=== PATIENT | male | born 1955 | race Caucasian/White ===

== ENCOUNTER 2017-02-19 08:26 | Day surgery (SDC) | payer MEDICARE, OTHER ==
[2017-02-19] MEDS ORDERED: Lactated Ringers 1,000 ML IV SCH (08:45)
[2017-02-19] MEDS ORDERED: fentaNYL 100 MCG/2 ML SDV ONE (09:54)
[2017-02-19] MEDS ORDERED: Propofol 200 MG/20 ML SDV ONE ×2 (09:54→10:32)
[2017-02-19] MEDS ORDERED: Midazolam 1 MG/ML 2 ML SDV ONE (09:54)
[2017-02-19 12:01] VITALS: BP 125/70
[2017-02-19] MEDS ORDERED: Iopamidol 612 MG/ML 150 ML Bottle IV PRN (12:03)
[2017-02-19] MEDS ORDERED: Sodium Chloride 0.9% 10 ML Syringe FLUSH PRN (12:04)
[2017-02-19] MEDS ORDERED: Sodium Chloride 0.9% 100 ML IV SCH (12:15)
--- NOTE | 2017-02-19 13:01 | CT ---
Chest Abdomen Pelvis w Cont Total DLP 518 mGycm. INDICATION: known rectal tumor COMPARISON: None. FINDINGS: Enhancing asymmetric wall thickening of the rectum over a superior to inferior dimension o f 7.2 cm consistent with clinical indication of known rectal tumor. Enlarged lymph node in the perir ectal fat on series 3 image 181 measuring 10 mm short axis. There are additional tiny lymph nodes in the perirectal fat that are not enlarged by CT size criteria. No adenopathy in the abdomen. Tiny hy podensities in left hepatic lobe too small to characterize but statistically represent cysts. Cholec ystectomy. Small bilateral renal cysts. Tiny esophageal hiatal hernia. Tiny fat-containing periumbil ical hernia. Normal appendix. Lungs are clear. No adenopathy in the chest. No worrisome osseous lesi ons. Exam otherwise unremarkable. IMPRESSION: 1. Enhancing asymmetric wall thickening of the rectum consistent with clinical indication of known r ectal tumor. Single enlarged lymph node in the perirectal fat measuring 10 mm short axis is suspicio us for metastatic disease or reactive lymph node.
--- NOTE | 2017-02-19 13:49 | OR ---
DATE OF PROCEDURE: 02/19/2017 PREOPERATIVE DIAGNOSIS: Colon cancer screening. POSTOPERATIVE DIAGNOSIS: Large rectal mass consistent with rectal adenocarcinoma and multiple colon polyps. PROCEDURE PERFORMED: Colonoscopy to the cecum with biopsy resection of three polyps in the cecum, biopsy of sessile right colon polyp, snare cautery polypectomy of transverse colon polyp, and tattoo of same, biopsy resection of small polyp 10 cm distal to the tattooed polyp, biopsy resection of small colon polyp 20 cm distal to the tattooed polyp, biopsy of rectal mass. ANESTHESIA: IV anesthesia with monitored anesthesia care. INDICATION: This 61-year-old white male is referred for a colonoscopy for colon cancer screening. He has never had a colonoscopic exam. I counseled him for the procedure including risks and alternatives, and he gave his informed consent to proceed. DESCRIPTION OF PROCEDURE: The patient was placed in the left lateral decubitus position. IV anesthesia was administered by the Anesthesia Service. Time-out was held. A rectal exam was performed with a very large mass palpable here. The flexible video Olympus colonoscope was introduced through his anus, up his rectum, and out his colon all the way to the cecum. En route, in the transverse colon, we saw a prominent polyp. A snare was passed about its base, it was sessile. We attempted to remove as much of this we could. Residual polyp was removed with the biopsy forceps. We did tattoo this area with Spring ink. The scope was then passed on to the cecum. In the cecum, we saw three small polyps, which were removed with the biopsy forceps and sent to the laboratory together as one specimen. The scope was brought back into the right colon. Here, we saw a flat sessile polyp. This was biopsied. This was not removed. The scope was then withdrawn further. We visualized the area that was tattooed. Hemostasis was noted. About 10 cm distal to this, we saw a small polyp, which was removed with the biopsy forceps. About 10 cm further back we encounter another small polyp, which was removed with the biopsy forceps. The scope was then brought back with no ther lesions noted until it reached the rectum where the large rectal mass was biopsied. We retroflexed the scope to visualize this further. The scope was then straightened and removed. He tolerated the procedure well. We will obtain a CBC, CMP, CEA, and will do a CT scan of his chest, abdomen and pelvis. Dell Brattlof, MD /[id number] MTDD
== END 2017-02-19 09:35 | disposition home or self-care (01) ==
LOC: JP.SDS 08:26
PROVIDERS: ATTEND Surgery
DX: Z12.11 Encounter for screening for malignant neoplasm of colon (principal); D12.0 Benign neoplasm of cecum; D12.2 Benign neoplasm of ascending colon; D12.3 Benign neoplasm of transverse colon; D12.8 Benign neoplasm of rectum; C20 Malignant neoplasm of rectum
CPT/HCPCS: 36415; 45380; 45385; 71260; 74177; 80053; 82378; 85027; 88305; J2250; J2704; J3010; J7030; J7050; J7120

== ENCOUNTER 2020-11-16 17:04 | Emergency (ER) | payer MEDICARE ==
--- NOTE | 2020-11-16 17:19 | EDM.PDOC ---
<January Larios - Last Filed: 11/16/20 20:59> ED HPI GENERAL MEDICAL PROBLEM - General Chief Complaint: General Stated Complaint: [facility] Time Seen by Provider: 11/16/20 17:16 - Related Data Allergies Allergy/AdvReac Type Severity Reaction Status Date / Time No Known Allergies Allergy Verified 11/16/20 17:14 Home Meds: Home Meds Acetaminophen 500 mg PO QID PRN 10/11/18 [History] Morphine [MS Contin] 15 mg PO BID 10/11/18 [History] oxyCODONE [Oxycodone HCl] 20 mg PO Q3H PRN 10/11/18 [History] Course - Re-Assessments/Exams Free Text/Narrative Re-Assessment/Exam: 11/16/20 20:20 pt had a cat scvan of the abdoman pelvis which showed a 9.1 fluid collection in the pelvic area looking like a chronic abcess . This also could be a necrotic pelvic mass. He was seen at [place] last thur. Dr Reyes looked at the situation and this was discussed with Dr Campbell and he felt the pt would be better served if he went back to [place]. His lactic acid is not elevated. His crp is high. His wbc is not elevated. 11/16/20 20:57 [facility] was consulted and accepted the pt. [facility] was not comfortable accepting the pt. Dr Campbell was not comfortable draining this area. Departure - Departure Time of Disposition: 20:59 Disposition: DC/Tfer to Acute Hospital 02 Condition: Fair Clinical Impression: Pelvic abscess, Metastatic cancer, UTI (urinary tract infection), Dehydration - Discharge Information Referrals: Timoteo Myers NP [Primary Care Provider] - Forms: ED Department Discharge Care Plan Goals: transfer to [facility] <Elieser Gil - Last Filed: 11/17/20 07:05> ED HPI GENERAL MEDICAL PROBLEM - General Source of Information: Reports: Patient, Family History Limitations: Reports: No Limitations - History of Present Illness INITIAL COMMENTS - FREE TEXT/NARRATIVE: 65-year-old male with metastatic cancer, on chemotherapy who has had generalized malaise for the past 2 days, fever, and now persistent nausea and vomiting and unable to take his medications. He spiked a temperature to 103 today. He did call his primary provider and was started on some Bactrim antibiotic but his first dose he threw up, he also cannot take his pain medications. He denies any shortness of breath. His last chemo was 1 week ago, his next round is on November 26. His sister who accompanies him says that this round "kicked his butt bad". Onset: Gradual Duration: Day(s): (Worsening over the past 48 hours) Location: Reports: Abdomen (Pain is in his lower abdomen, also in the buttock crease where there is an open ulceration) Associated Symptoms: Reports: Fever/Chills, Loss of Appetite, Malaise, Nausea/Vomiting, Weakness. Denies: Confusion, Chest Pain Past Medical History HEENT History: Reports: Hard of Hearing, Impaired Vision Cardiovascular History: Reports: Other (See Below) Other Cardiovascular History: BLOOD CLOT X2 IN LEFT LUNG Gastrointestinal History: Reports: Hemorrhoids Neurological History: Reports: Brain Injury, Head Trauma Psychiatric History: Reports: Other (See Below) Other Psychiatric History: TBI Hematologic History: Reports: Blood Transfusion(s) Oncologic (Cancer) History: Reports: Bladder, Colon, Prostate - Infectious Disease History Infectious Disease History: Reports: Chicken Pox, Measles, Mumps - Past Surgical History GI Surgical History: Reports: Colostomy, Small Bowel, Other (See Below) Male Surgical History: Reports: Cystectomy, Prostatectomy, Other (See Below) Other Male Surgeries/Procedures: urostomy Social & Family History - Caffeine Use Caffeine Use: Reports: Coffee ED ROS GENERAL - Review of Systems Review Of Systems: See Below Constitutional: Reports: Fever, Chills Respiratory: Denies: Shortness of Breath, Cough Cardiovascular: Denies: Chest Pain Endocrine: Reports: Fatigue GI/Abdominal: Reports: Abdominal Pain (Especially lower abdomen), Other (Has both a colostomy and urostomy, both functioning) Musculoskeletal: Reports: Back Pain (Low back pain, hip pain from metastatic disease) Skin: Reports: Other (Ulceration in the buttock crease which is painful) Neurological: Reports: Weakness. Denies: Confusion, Dizziness, Headache Psychiatric: Reports: No Symptoms ED EXAM, GENERAL - Physical Exam Exam: See Below Exam Limited By: No Limitations General Appearance: Alert, Mild Distress (Looks fairly uncomfortable from pain, some chills) Eye Exam: Bilateral Eye: Normal Inspection Head: Atraumatic Neck: Supple, Non-Tender Respiratory/Chest: Lungs Clear Cardiovascular: Regular Rate, Rhythm. No: Tachycardia GI/Abdominal: Normal Bowel Sounds, Soft, Tender (Marked tenderness to palpation across the lower abdomen, colostomy and urostomy are in place and appear to be functioning) Extremities: Normal Inspection Neurological: Alert, Oriented Skin Exam: Other (Fairly deep ulceration in the buttock crease which is tender to palpation, no purulent drainage) Course - Vital Signs Last Recorded V/S: Last Vital Signs Temp 99.9 F 11/16/20 17:27 Pulse 73 11/16/20 21:08 Resp 16 11/16/20 17:44 BP 135/62 11/16/20 21:08 Pulse Ox 100 11/16/20 21:08 - Orders/Labs/Meds Orders: Active Orders 24 hr Category Date Time Status Chest 1V Frontal [CR] Stat Exams 11/16/20 17:37 Taken CULTURE BLOOD [BC] Urgent Lab 11/16/20 17:25 Received CULTURE BLOOD [BC] Urgent Lab 11/16/20 17:35 Received CULTURE URINE [RM] Stat Lab 11/16/20 18:09 Results Blood Culture x2 Reflex Set [OM.PC] Urgent Oth 11/16/20 17:15 Ordered Labs: Laboratory Tests 11/16/20 11/16/20 11/16/20 Range/Units 17:19 17:19 17:25 WBC 4.2 L (4.5-11.0) K/uL RBC 3.85 L (4.30-5.90) M/uL Hgb 12.3 (12.0-15.0) g/dL Hct 35.1 L (40.0-54.0) % MCV 91 (80-98) fL MCH 32 H (27-31) pg MCHC 35 (32-36) % Plt Count 215 (150-400) K/uL Neut % (Auto) 80 H (36-66) % Lymph % (Auto) 11 L (24-44) % Blaine % (Auto) 8 H (2-6) % Eos % (Auto) 0 L (2-4) % Baso % (Auto) 0 (0-1) % Sodium (140-148) mmol/L Potassium (3.6-5.2) mmol/L Chloride (100-108) mmol/L Carbon Dioxide (21-32) mmol/L Anion Gap (5.0-14.0) mmol/L BUN (7-18) mg/dL Creatinine (0.8-1.3) mg/dL Est Cr Clr Drug Dosing mL/min Estimated GFR (MDRD) (>60) Glucose (74-106) mg/dL Lactic Acid (0.4-2.0) mmol/L Calcium (8.5-10.1) mg/dL Total Bilirubin (0.2-1.0) mg/dL AST (15-37) U/L ALT (12-78) U/L Alkaline Phosphatase (46-116) U/L C-Reactive Protein 29.80 H (0.0-0.3) mg/dL Total Protein (6.4-8.2) g/dL Albumin (3.4-5.0) g/dL Globulin (2.3-3.5) g/dL Albumin/Globulin Ratio (1.2-2.2) Procalcitonin 1.88 ng/mL Urine Color (YELLOW) Urine Appearance (CLEAR) Urine pH (5.0-8.0) Ur Specific [place] (1.008-1.030) Urine Protein (NEGATIVE) mg/dL Urine Glucose (UA) (NEGATIVE) mg/dL Urine Ketones (NEGATIVE) mg/dL Urine Occult Blood (NEGATIVE) Urine Nitrite (NEGATIVE) Urine Bilirubin (NEGATIVE) Urine Urobilinogen (0.2-1.0) EU/dL Ur Leukocyte Esterase (NEGATIVE) Urine RBC (0-5) Urine WBC (0-5) Ur Epithelial Cells Amorphous Sediment Urine Bacteria Urine Mucus SARS CoV-2 RNA Rapid MARCELINA 11/16/20 11/16/20 11/16/20 Range/Units 17:25 17:25 17:58 WBC (4.5-11.0) K/uL RBC (4.30-5.90) M/uL Hgb (12.0-15.0) g/dL Hct (40.0-54.0) % MCV (80-98) fL MCH (27-31) pg MCHC (32-36) % Plt Count (150-400) K/uL Neut % (Auto) (36-66) % Lymph % (Auto) (24-44) % Blaine % (Auto) (2-6) % Eos % (Auto) (2-4) % Baso % (Auto) (0-1) % Sodium 127 L (140-148) mmol/L Potassium 4.2 (3.6-5.2) mmol/L Chloride 92 L (100-108) mmol/L Carbon Dioxide 24 (21-32) mmol/L Anion Gap 15.2 H (5.0-14.0) mmol/L BUN 17 D (7-18) mg/dL Creatinine 1.2 (0.8-1.3) mg/dL Est Cr Clr Drug Dosing 59.16 mL/min Estimated GFR (MDRD) > 60 (>60) Glucose 152 H (74-106) mg/dL Lactic Acid 1.6 (0.4-2.0) mmol/L Calcium 9.0 (8.5-10.1) mg/dL Total Bilirubin 2.0 H (0.2-1.0) mg/dL AST 14 L (15-37) U/L ALT 25 (12-78) U/L Alkaline Phosphatase 114 (46-116) U/L C-Reactive Protein (0.0-0.3) mg/dL Total Protein 8.0 (6.4-8.2) g/dL Albumin 2.8 L (3.4-5.0) g/dL Globulin 5.2 H (2.3-3.5) g/dL Albumin/Globulin Ratio 0.5 L (1.2-2.2) Procalcitonin ng/mL Urine Color Yellow (YELLOW) Urine Appearance Turbid A (CLEAR) Urine pH >= 9.0 H (5.0-8.0) Ur Specific [place] 1.020 (1.008-1.030) Urine Protein >=300 H (NEGATIVE) mg/dL Urine Glucose (UA) Negative (NEGATIVE) mg/dL Urine Ketones 40 H (NEGATIVE) mg/dL Urine Occult Blood Moderate H (NEGATIVE) Urine Nitrite Positive H (NEGATIVE) Urine Bilirubin Negative (NEGATIVE) Urine Urobilinogen 0.2 (0.2-1.0) EU/dL Ur Leukocyte Esterase Small H (NEGATIVE) Urine RBC 10-20 H (0-5) Urine WBC 30-40 H (0-5) Ur Epithelial Cells Not seen Amorphous Sediment Many Urine Bacteria Moderate Urine Mucus Not seen SARS CoV-2 RNA Rapid MARCELINA 11/16/20 Range/Units 20:59 WBC (4.5-11.0) K/uL RBC (4.30-5.90) M/uL Hgb (12.0-15.0) g/dL Hct (40.0-54.0) % MCV (80-98) fL MCH (27-31) pg MCHC (32-36) % Plt Count (150-400) K/uL Neut % (Auto) (36-66) % Lymph % (Auto) (24-44) % [place]aine % (Auto) (2-6) % Eos % (Auto) (2-4) % Baso % (Auto) (0-1) % Sodium (140-148) mmol/L Potassium (3.6-5.2) mmol/L Chloride (100-108) mmol/L Carbon Dioxide (21-32) mmol/L Anion Gap (5.0-14.0) mmol/L BUN (7-18) mg/dL Creatinine (0.8-1.3) mg/dL Est Cr Clr Drug Dosing mL/min Estimated GFR (MDRD) (>60) Glucose (74-106) mg/dL Lactic Acid (0.4-2.0) mmol/L Calcium (8.5-10.1) mg/dL Total Bilirubin (0.2-1.0) mg/dL AST (15-37) U/L ALT (12-78) U/L Alkaline Phosphatase (46-116) U/L C-Reactive Protein (0.0-0.3) mg/dL Total Protein (6.4-8.2) g/dL Albumin (3.4-5.0) g/dL Globulin (2.3-3.5) g/dL Albumin/Globulin Ratio (1.2-2.2) Procalcitonin ng/mL Urine Color (YELLOW) Urine Appearance (CLEAR) Urine pH (5.0-8.0) Ur Specific [place] (1.008-1.030) Urine Protein (NEGATIVE) mg/dL Urine Glucose (UA) (NEGATIVE) mg/dL Urine Ketones (NEGATIVE) mg/dL Urine Occult Blood (NEGATIVE) Urine Nitrite (NEGATIVE) Urine Bilirubin (NEGATIVE) Urine Urobilinogen (0.2-1.0) EU/dL Ur Leukocyte Esterase (NEGATIVE) Urine RBC (0-5) Urine WBC (0-5) Ur Epithelial Cells Amorphous Sediment Urine Bacteria Urine Mucus SARS CoV-2 RNA Rapid MARCELINA Negative Meds: Medications Discontinued Medications Generic Name Dose Route Start Last Admin Trade Name Lesli PRN Reason Stop Dose Admin Hydromorphone HCl 1 mg 11/16/20 17:31 11/16/20 17:39 Dilaudid IVPUSH 11/16/20 17:32 1 mg ONETIME ONE Administration Hydromorphone HCl 1 mg 11/16/20 18:27 11/16/20 18:32 Dilaudid IVPUSH 11/16/20 18:28 1 mg ONETIME ONE Administration Sodium Chloride 1,000 mls @ 500 mls/hr 11/16/20 17:45 11/16/20 17:48 Normal Saline IV 500 mls/hr ASDIRECTED LYNDSAY Administration Meropenem 1 gm/ Sodium 100 mls @ 200 mls/hr 11/16/20 17:39 11/16/20 17:48 Chloride IV 11/16/20 18:08 200 mls/hr ONETIME ONE Administration Sodium Chloride Confirm 11/16/20 17:45 11/16/20 18:28 Normal Saline Administered 11/16/20 17:46 Not Given Dose 100 mls @ as directed .ROUTE .STK-MED ONE Sodium Chloride 75 mls @ 3 mls/sec 11/16/20 18:45 11/16/20 18:49 Normal Saline IV 3 mls/sec ASDIRECTED LYNDSAY Administration Sodium Chloride 1,000 mls @ 500 mls/hr 11/16/20 20:30 11/16/20 20:20 Normal Saline IV 500 mls/hr ASDIRECTED LYNDSAY Administration Iopamidol 100 ml 11/16/20 18:45 11/16/20 18:49 Isovue-300 (61%) IV 100 ml . DIRECTED LYNDSAY Administration Morphine Sulfate 4 mg 11/16/20 19:49 11/16/20 19:57 Morphine IVPUSH 11/16/20 19:50 4 mg ONETIME ONE Administration Morphine Sulfate 4 mg 11/16/20 21:15 11/16/20 21:27 Morphine IVPUSH 11/16/20 21:16 4 mg ONETIME ONE Administration Ondansetron HCl 4 mg 11/16/20 17:31 11/16/20 17:37 Zofran IVPUSH 11/16/20 17:32 4 mg ONETIME ONE Administration Ondansetron HCl 4 mg 11/16/20 19:23 11/16/20 19:31 Zofran IVPUSH 11/16/20 19:24 4 mg ONETIME ONE Administration Sodium Chloride 10 ml 11/16/20 18:32 11/16/20 18:49 Saline Flush FLUSH 11/16/20 18:33 10 ml ONETIME ONE Administration - Re-Assessments/Exams Free Text/Narrative Re-Assessment/Exam: 11/16/20 17:42 Normal saline fluids will be started, blood cultures obtained, CBC, CMP, CRP, procalcitonin, UA and 1 view chest x-ray. Blood cultures were also be drawn. After the labs 1 g of meropenem will be started IV. 11/16/20 17:46 After discussing his case with the hospitalist service and reviewing his past records, a CT of his abdomen and pelvis will be ordered with IV contrast if his renal function can tolerate it. Care will be turned over to Dr. Larios pending lab and x-ray. 11/16/20 17:54 Chest x-ray is clear. Sepsis Event Note (ED) - Focused Exam Vital Signs: Vital Signs Pulse BP Pulse Ox 11/16/20 21:08 73 135/62 100 11/16/20 20:17 79 130/69 98 11/16/20 19:19 79 139/57 L 94 L - My Orders Last 24 Hours: My Active Orders 11/16/20 17:15 Blood Culture x2 Reflex Set [OM.PC] Urgent 11/16/20 17:25 CULTURE BLOOD [BC] Urgent 11/16/20 17:35 CULTURE BLOOD [BC] Urgent 11/16/20 17:37 Chest 1V Frontal [CR] Stat - Assessment/Plan Last 24 Hours: My Active Orders 11/16/20 17:15 Blood Culture x2 Reflex Set [OM.PC] Urgent 11/16/20 17:25 CULTURE BLOOD [BC] Urgent 11/16/20 17:35 CULTURE BLOOD [BC] Urgent 11/16/20 17:37 Chest 1V Frontal [CR] Stat
[2020-11-16] MEDS ORDERED: Ondansetron 4 MG/2 ML SDV IVPUSH ONE ×2 (17:31→19:23)
[2020-11-16] MEDS ORDERED: HYDROmorphone 1 MG/ML Syringe IVPUSH ONE ×2 (17:31→18:27)
[2020-11-16] MEDS ORDERED: Meropenem 1 GM in Sodium Chloride 0.9% 100 ML IV ONE (17:39)
[2020-11-16] MEDS ORDERED: Sodium Chloride 0.9% 1,000 ML IV SCH ×2 (17:45→20:30)
[2020-11-16] MEDS ORDERED: Sodium Chloride 0.9% 100 ML ONE (17:45)
[2020-11-16] MEDS ORDERED: Sodium Chloride 0.9% 10 ML Syringe FLUSH ONE (18:32)
[2020-11-16] MEDS ORDERED: Sodium Chloride 0.9% 75 ML IV SCH (18:45)
[2020-11-16] MEDS ORDERED: Iopamidol 612 MG/ML 100 ML Bottle IV SCH (18:45)
[2020-11-16] MEDS ORDERED: Morphine 4 MG/ML Syringe IVPUSH ONE ×2 (19:49→21:15)
--- NOTE | 2020-11-16 19:59 | CRLCT ---
INDICATION: Abdominal abscess TECHNIQUE: Axial images were obtained from the diaphragm to the pubic symphysis. Reformats were obtained in the coronal and sagittal plane. IV Contrast: 100 cc Isovue-300 Oral Contrast: None COMPARISON: Abdomen and pelvis CT 10/11/2018 FINDINGS: Lower chest: Unremarkable. Liver: Normal in contour with 2 hypodensities measuring 5 millimeters or less within the left lobe of the liver which are too small for characterization. Gallbladder and bile ducts: Status post cholecystectomy. Spleen: Unremarkable. Normal in size without mass. Pancreas: Unremarkable. No mass or inflammation. Adrenal glands: Unremarkable. No nodules. Kidneys: Mild nonspecific fat stranding both kidneys with mildly heterogeneous enhancement of both kidneys, best appreciated near the upper pole (2, 36). Exophytic cyst lower pole left kidney. Vasculature: Atherosclerosis without abdominal aortic aneurysm. GI tract: Minimal hiatal hernia. Subcentimeter rin hepatis lymph nodes. Small bowel is decompressed. Right lower quadrant ileostomy. Left lower quadrant urostomy. Pelvis: Status post cystectomy with complex presacral collection measuring up to 9.1 x 6.7 centimeters. There are some associated erosion of the adjacent coccyx. Bones: Degenerative disc disease lumbar spine with some erosive changes of the distal coccyx. IMPRESSION: 1. Status post cystectomy and right lower quadrant ostomy and left lower quadrant urostomy. Mixture of some soft tissue with central low density in the pelvis measuring 9.1 centimeters. Differential diagnosis would include a chronic postoperative collection including chronic abscess and/or necrotic pelvic mass. This is better defined and increased in size compared to the 2018 exam. 2. Heterogeneous enhancement of the kidneys. This is nonspecific but can be seen in pyelonephritis. 3. Other incidental findings as detailed above. Please note that all CT scans at this facility use dose modulation, iterative reconstruction, and/or weight-based dosing when appropriate to reduce radiation dose to as low as reasonably achievable. Dictated by Alexx Hu MD @ Nov 16 2020 7:39PM Signed by Dr. Alexx Hu @ Nov 16 2020 7:57PM
[2020-11-16 21:09] VITALS: BP 135/62; PULSE 73
--- NOTE | 2020-11-17 09:02 | CR ---
CHEST: Portable 11/16/2020 at 5:55 PM CLINICAL HISTORY:Fever, on chemotherapy COMPARISON:CT 2018 FINDINGS: Heart size and pulmonary vascular normal. There are atherosclerotic changes in the aorta. Lung aguilar are clear. Impression: No acute cardiopulmonary process.
== END 2020-11-16 21:49 ==
LOC: JP.ED 17:04
DX: K65.1 Peritoneal abscess (principal); N39.0 Urinary tract infection, site not specified; E86.0 Dehydration; C80.1 Malignant (primary) neoplasm, unspecified; L98.419 Non-pressure chronic ulcer of buttock with unspecified severity; Z20.828 Contact with and (suspected) exposure to other viral communicable diseases
CPT/HCPCS: 36415; 71045; 71045-26; 74177; 80053; 81001; 83605; 84145; 85025; 86140; 87040; 87086; 87088; 87186; 96365; 96375; 96376; 99284; 99285-25; J1170; J2185; J2270; J2405; J7030; J7050; Q9967; U0002

== ENCOUNTER 2021-03-27 09:33 | Emergency (ER) | payer MEDICARE ==
--- NOTE | 2021-03-27 09:44 | EDM.PDOC ---
ED HPI GENERAL MEDICAL PROBLEM - General Chief Complaint: General Stated Complaint: MEDICAL VIA [facility] - Time Seen by Provider: 03/27/21 09:40 Source of Information: Reports: Patient, EMS, Old Records History Limitations: Reports: No Limitations - History of Present Illness INITIAL COMMENTS - FREE TEXT/NARRATIVE: 65 yo male with metastatic colon CA is brought in by EMS this morning for nausea, vomiting, watery drainage from colostomy and generalized weakness. EMS started 500 ml of NS IV on him and administered Zofran 4 mg IV and 100 mcg IV Fentanyl. 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 He lives alone, but a sister has been staying with him and assisting him(may have a male roommate? per EMS). Gets most of his care at the [facility]. No bloody emesis or bloody stool. His open wound near his anus drains pus chronically he says. No fever reported. Has a urostomy also. Sister says that they were told that his current chemo did cause vomiting and diarrhea(they were told this by [place]). Onset: Gradual Duration: Day(s):, Getting Worse Location: Reports: Abdomen, Generalized Quality: Reports: Other (none new) Severity: Severe (weakness) Improves with: Reports: None Worsens with: Reports: Other (time and continued nausea, vomiting, diarrhea) Context: Reports: Other (See HPI) Associated Symptoms: Reports: Nausea/Vomiting, Weakness (generalized). Denies: Fever/Chills Treatments INDUSTRIAL MECHANIC: Reports: Other (see below) (See HPI) Sacral Pain Score (Numeric/FACES): 5 - Related Data Allergies Allergy/AdvReac Type Severity Reaction Status Date / Time No Known Allergies Allergy Verified 03/27/21 10:08 Home Meds: Home Meds oxyCODONE [Oxycodone HCl] 30 mg PO Q4H PRN 10/11/18 [History] Loperamide [Imodium AD] 4 mg PO ASDIRECTED PRN 03/27/21 [History] Morphine Sulfate [Morphine Sulfate ER] 130 mg PO Q8H 03/27/21 [History] Pemigatinib [Pemazyre] 13.5 mg PO DAILY 03/27/21 [History] Past Medical History HEENT History: Reports: Hard of Hearing, Impaired Vision Cardiovascular History: Reports: Other (See Below) Other Cardiovascular History: BLOOD CLOT X2 IN LEFT LUNG Gastrointestinal History: Reports: Hemorrhoids Genitourinary History: Reports: Other (See Below) Musculoskeletal History: Reports: None Neurological History: Reports: Brain Injury, Head Trauma Psychiatric History: Reports: Other (See Below) Other Psychiatric History: TBI Endocrine/Metabolic History: Reports: Obesity/BMI 30+ Hematologic History: Reports: Blood Transfusion(s) Oncologic (Cancer) History: Reports: Bladder, Colon, Prostate, Other (See Below) Other Oncologic History: right hip - Infectious Disease History Infectious Disease History: Reports: Chicken Pox, Measles, Mumps - Past Surgical History GI Surgical History: Reports: Colostomy, Small Bowel, Other (See Below) Male Surgical History: Reports: Cystectomy, Prostatectomy, Other (See Below) Other Male Surgeries/Procedures: urostomy Social & Family History - Caffeine Use Caffeine Use: Reports: Coffee ED ROS GENERAL - Review of Systems Review Of Systems: See Below Constitutional: Reports: Malaise, Weakness HEENT: Reports: Other (dry mouth) Respiratory: Reports: No Symptoms Cardiovascular: Reports: No Symptoms Endocrine: Reports: No Symptoms GI/Abdominal: Reports: Diarrhea, Nausea, Vomiting. Denies: Black Stool, Bloody Stool, Distension, Hematemesis, Hematochezia, Melena : Reports: No Symptoms Musculoskeletal: Reports: No Symptoms Skin: Reports: Wound (coccygeal area, chronic) Neurological: Reports: No Symptoms Psychiatric: Reports: No Symptoms ED EXAM, GENERAL - Physical Exam Exam: See Below Exam Limited By: No Limitations General Appearance: Alert, WD/WN, No Apparent Distress Eye Exam: Bilateral Eye: Normal Inspection Ears: Normal External Exam, Normal Canal, Hearing Grossly Normal Ear Exam: Bilateral Ear: Auricle Normal, Canal Normal Nose: Normal Inspection, No Blood Throat/Mouth: Normal Inspection, Normal Lips, Normal Oropharynx, Normal Voice, No Airway Compromise Head: Atraumatic, Normocephalic Neck: Normal Inspection Respiratory/Chest: No Respiratory Distress, Lungs Clear, Normal Breath Sounds, No Accessory Muscle Use Cardiovascular: Regular Rate, Rhythm, No Edema GI/Abdominal: Normal Bowel Sounds, Soft, Non-Tender, No Distention Back Exam: Normal Inspection. No: CVA Tenderness (R), CVA Tenderness (L) Extremities: Normal Inspection, Normal Range of Motion, Non-Tender, No Pedal Edema Neurological: Alert, Oriented, CN II-XII Intact, Normal Cognition, No Motor/Sensory Deficits Psychiatric: Normal Affect, Normal Mood Skin Exam: Warm, Dry, Normal Color, No Rash, Wound/Incision (coccygeal area. Purulent drainage noted. ) Course - Vital Signs Last Recorded V/S: Last Vital Signs Temp 36.1 C 03/27/21 10:05 Pulse 93 03/27/21 10:44 Resp 12 03/27/21 10:44 BP 122/67 03/27/21 10:44 Pulse Ox 97 03/27/21 10:44 - Orders/Labs/Meds Orders: Active Orders 24 hr Category Date Time Status UA W/MICROSCOPIC [URIN] Stat Lab 03/27/21 09:38 Ordered Sodium Chloride 0.9% [Normal Saline] 1,000 ml Med 03/27/21 10:45 Active IV ASDIRECTED Sodium Chloride 0.9% [Normal Saline] 1,000 ml Med 03/27/21 12:00 Active IV ASDIRECTED Medication Orders Sodium Chloride (Normal Saline) 1,000 mls @ 1,000 mls/hr IV ASDIRECTED LYNDSAY Last Admin: 03/27/21 10:41 Dose: 1,000 mls/hr Documented by: HEATHER Sodium Chloride (Normal Saline) 1,000 mls @ 1,000 mls/hr IV ASDIRECTED YLNDSAY Last Admin: 03/27/21 12:05 Dose: 1,000 mls/hr Documented by: HEATHER Labs: Laboratory Tests 03/27/21 03/27/21 Range/Units 10:05 10:05 WBC 12.0 H (4.5-11.0) K/uL RBC 5.46 (4.30-5.90) M/uL Hgb 15.4 H D (12.0-15.0) g/dL Hct 46.1 (40.0-54.0) % MCV 84 (80-98) fL MCH 28 (27-31) pg MCHC 33 (32-36) % Plt Count 365 (150-400) K/uL Sodium 136 L (140-148) mmol/L Potassium 4.6 (3.6-5.2) mmol/L Chloride 97 L (100-108) mmol/L Carbon Dioxide 24 (21-32) mmol/L Anion Gap 19.6 H (5.0-14.0) mmol/L BUN 15 (7-18) mg/dL Creatinine 1.3 (0.8-1.3) mg/dL Est Cr Clr Drug Dosing 55.54 mL/min Estimated GFR (MDRD) 56 L (>60) Glucose 163 H (74-106) mg/dL Calcium 10.8 H D (8.5-10.1) mg/dL Total Bilirubin 1.5 H (0.2-1.0) mg/dL AST 25 D (15-37) U/L ALT 30 (12-78) U/L Alkaline Phosphatase 151 H (46-116) U/L Total Protein 9.5 H (6.4-8.2) g/dL Albumin 3.8 (3.4-5.0) g/dL Globulin 5.7 H (2.3-3.5) g/dL Albumin/Globulin Ratio 0.7 L (1.2-2.2) Meds: Medications Generic Name Dose Route Start Last Admin Trade Name Freq PRN Reason Stop Dose Admin Sodium Chloride 1,000 mls @ 1,000 mls/hr 03/27/21 10:45 03/27/21 10:41 Normal Saline IV 1,000 mls/hr ASDIRECTED LYNDSAY Administration Sodium Chloride 1,000 mls @ 1,000 mls/hr 03/27/21 12:00 03/27/21 12:05 Normal Saline IV 1,000 mls/hr ASDIRECTED LYNDSAY Administration Discontinued Medications Generic Name Dose Route Start Last Admin Trade Name Freq PRN Reason Stop Dose Admin Hydromorphone HCl 1 mg 03/27/21 11:35 03/27/21 12:06 Hydromorphone 1 Mg/Ml Syringe IVPUSH 03/27/21 11:36 1 mg ONETIME ONE Administration Loperamide HCl 4 mg 03/27/21 12:00 03/27/21 12:05 Loperamide 2 Mg Cap PO 03/27/21 12:01 4 mg ONETIME ONE Administration Ondansetron HCl 4 mg 03/27/21 10:26 03/27/21 10:40 Ondansetron 4 Mg/2 Ml Sdv IVPUSH 03/27/21 10:27 4 mg ONETIME ONE Administration Prochlorperazine Edisylate 5 mg 03/27/21 11:54 03/27/21 12:02 Prochlorperazine 10 Mg/2 Ml Sdv IVPUSH 03/27/21 11:55 5 mg ONETIME ONE Administration - Re-Assessments/Exams Free Text/Narrative Re-Assessment/Exam: 03/27/21 13:04 Is feeling better now after 2.5 liters of IV fluids and IV compazine. Free Text/Narrative Re-Assessment/Exam: 03/27/21 15:10 Able to walk unassisted in the ER after tx. Ready for discharge. Departure - Departure Time of Disposition: 05:20 Disposition: Home, Self-Care 01 Condition: Fair Clinical Impression: Nausea vomiting and diarrhea, Dehydration - Discharge Information *PRESCRIPTION DRUG MONITORING PROGRAM REVIEWED*: Not Applicable *COPY OF PRESCRIPTION DRUG MONITORING REPORT IN PATIENT SEBASTIEN: Not Applicable Instructions: Nausea and Vomiting, Adult, [id number], Diarrhea, Adult, [id number] Referrals: Timoteo Myers [facility] [Primary Care Provider] - Forms: ED Department Discharge Additional Instructions: Use loperamide as needed for control of loose stools. Use Zofran ODT 4 mg every 4 hrs as needed for nausea control. Take in Gatorade or other clear liquids and eat a diet as tolerated to help maintain hydration and keep up your strength. Discuss with your provider whether to continue the current chemo meds. F/U in [place] as discussed. Return as needed. Sepsis Event Note (ED) - Focused Exam Vital Signs: Vital Signs Temp Pulse Resp BP Pulse Ox 03/27/21 10:44 93 12 122/67 97 03/27/21 10:05 36.1 C 89 10 L 144/81 H 100 03/27/21 09:46 36.1 C 89 10 L 144/81 H 100 - My Orders Last 24 Hours: My Active Orders 03/27/21 09:38 UA W/MICROSCOPIC [URIN] Stat 03/27/21 10:45 Sodium Chloride 0.9% [Normal Saline] 1,000 ml IV ASDIRECTED 03/27/21 12:00 Sodium Chloride 0.9% [Normal Saline] 1,000 ml IV ASDIRECTED - Assessment/Plan Last 24 Hours: My Active Orders 03/27/21 09:38 UA W/MICROSCOPIC [URIN] Stat 03/27/21 10:45 Sodium Chloride 0.9% [Normal Saline] 1,000 ml IV ASDIRECTED 03/27/21 12:00 Sodium Chloride 0.9% [Normal Saline] 1,000 ml IV ASDIRECTED
[2021-03-27] MEDS ORDERED: Ondansetron 4 MG/2 ML SDV IVPUSH ONE (10:26)
[2021-03-27 10:44] VITALS: BP 122/67; PULSE 93
[2021-03-27] MEDS ORDERED: Sodium Chloride 0.9% 1,000 ML IV SCH ×2 (10:45→12:00)
[2021-03-27] MEDS ORDERED: HYDROmorphone 1 MG/ML Syringe IVPUSH ONE (11:35)
[2021-03-27] MEDS ORDERED: Loperamide 1 MG/7.5 ML 7.5 ML UD Cup PO ONE (11:36)
[2021-03-27] MEDS ORDERED: Prochlorperazine 10 MG/2 ML SDV IVPUSH ONE (11:54)
[2021-03-27] MEDS ORDERED: Loperamide 2 MG Cap PO ONE (12:00)
== END 2021-03-27 15:28 | disposition home or self-care (01) ==
LOC: JP.ED 09:33
DX: E86.0 Dehydration (principal); R11.2 Nausea with vomiting, unspecified; R19.7 Diarrhea, unspecified; E66.9 Obesity, unspecified; Z68.33 Body mass index [BMI] 33.0-33.9, adult
CPT/HCPCS: 36415; 80053; 85027; 96374; 96375; 99283; 99285-25; A9270-GY; J0780; J1170; J2405; J7030

== ENCOUNTER 2021-06-28 14:49 | Inpatient (IN) | payer MEDICARE ==
--- NOTE | 2021-06-28 16:43 | EDM.PDOC ---
<CasieHolland jassoeal Catherine - Last Filed: 06/28/21 16:38> ED HPI GENERAL MEDICAL PROBLEM - General Chief Complaint: Skin Complaint Stated Complaint: HAS CANCER AND DOES NOT FEEL WELL Time Seen by Provider: 06/28/21 16:25 Source of Information: Reports: Patient, Old Records, RN History Limitations: Reports: No Limitations - History of Present Illness INITIAL COMMENTS - FREE TEXT/NARRATIVE: 65 yo male presents with concerns about dehydration and C.diff. Has a hx of CA and has a colostomy. He called down and talked with [place] where he gets his CA care and was told to come to the ER. He has not seen his primary recently, nor did he share his current concerns with him. He denies abdominal pain, fever, or vomiting. He has a large rectal open wound that he would like looked at also. Onset: Gradual, Unknown/Unsure Duration: Day(s):, Constant Location: Reports: Generalized Quality: Reports: Other (no new pain) Severity: Mild Improves with: Reports: None Worsens with: Reports: Other (unknown) Context: Reports: Other (See HPI) Associated Symptoms: Reports: Nausea/Vomiting (no vomiting, intermittent mild nausea), Other (weight loss, stools looser than normal). Denies: Confusion, Chest Pain, Cough, Fever/Chills, Headaches, Shortness of Breath Treatments ELASTIC YARN TWISTER: Reports: Other (see below) (none) Buttock Pain Score (Numeric/FACES): 6 - Related Data Allergies Allergy/AdvReac Type Severity Reaction Status Date / Time No Known Allergies Allergy Verified 06/28/21 15:36 Home Meds: Home Meds HYDROmorphone HCl [Dilaudid] 24 mg PO Q3H PRN 06/28/21 [History] Levothyroxine Sodium [Synthroid] 75 mcg PO DAILY 06/28/21 [History] Methadone 30 mg PO Q8H 06/28/21 [History] Past Medical History HEENT History: Reports: Hard of Hearing, Impaired Vision Cardiovascular History: Reports: Other (See Below) Other Cardiovascular History: BLOOD CLOT X2 IN RIGHT LUNG Respiratory History: Reports: Other (See Below) Other Respiratory History: PE Gastrointestinal History: Reports: Hemorrhoids Genitourinary History: Reports: Renal Calculus, Other (See Below) Other Genitourinary History: prostate CA Musculoskeletal History: Reports: None Neurological History: Reports: Brain Injury, Head Trauma Psychiatric History: Reports: Other (See Below) Other Psychiatric History: TBI Endocrine/Metabolic History: Reports: Obesity/BMI 30+, Other (See Below) Other Endocrine/Metabolic History: 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 Hematologic History: Reports: Blood Transfusion(s) Oncologic (Cancer) History: Reports: Bladder, Colon, Prostate, Other (See Below) Other Oncologic History: right hip Dermatologic History: Reports: Other (See Below) Other Dermatologic History: wound on coccyx - Infectious Disease History Infectious Disease History: Reports: Chicken Pox, Measles, Mumps - Past Surgical History Head Surgeries/Procedures: Reports: None HEENT Surgical History: Reports: Adenoidectomy, Tonsillectomy Cardiovascular Surgical History: Reports: None GI Surgical History: Reports: Colon, Colostomy, Small Bowel, Other (See Below) Male Surgical History: Reports: Cystectomy, Prostatectomy, Other (See Below) Other Male Surgeries/Procedures: urostomy Endocrine Surgical History: Reports: None Neurological Surgical History: Reports: None Musculoskeletal Surgical History: Reports: Other (See Below) Other Musculoskeletal Surgeries/Procedures:: left foot Dermatological Surgical History: Reports: None Social & Family History - Tobacco Use Tobacco Use Status *Q: Never Tobacco User - Caffeine Use Caffeine Use: Reports: None - Recreational Drug Use Recreational Drug Use: No ED ROS GENERAL - Review of Systems Review Of Systems: See Below Constitutional: Reports: Weight Loss HEENT: Reports: No Symptoms Respiratory: Reports: No Symptoms Cardiovascular: Reports: No Symptoms Endocrine: Reports: No Symptoms GI/Abdominal: Reports: Diarrhea, Nausea. Denies: Vomiting : Reports: No Symptoms Musculoskeletal: Reports: No Symptoms Skin: Reports: No Symptoms Neurological: Reports: No Symptoms Psychiatric: Reports: No Symptoms ED EXAM, SKIN/RASH Exam: See Below Exam Limited By: No Limitations General Appearance: Alert, WD/WN, No Apparent Distress Eye Exam: Bilateral Eye: Normal Inspection Ears: Normal External Exam, Normal Canal, Hearing Grossly Normal, Normal TMs Nose: Normal Inspection, No Blood Throat/Mouth: Normal Inspection, Normal Lips, Normal Oropharynx, Normal Voice, No Airway Compromise Head: Atraumatic, Normocephalic Neck: Normal Inspection Respiratory/Chest: No Respiratory Distress, Lungs Clear, Normal Breath Sounds, No Accessory Muscle Use Cardiovascular: Regular Rate, Rhythm, No Edema GI/Abdominal: Soft, Non-Tender, Abnormal Bowel Sounds (increased), Other (colostomy bag present). No: Distended, Guarding, Rigid, Rebound, Tender Rectal (Males) Exam: Other (His rectal mass does not reveal any redness or increased warmth. ) Back Exam: Normal Inspection Extremities: Normal Inspection, Normal Range of Motion, Non-Tender, No Pedal Edema Neurological: Alert, Oriented, CN II-XII Intact, Normal Cognition, No Motor/Sensory Deficits Psychiatric: Normal Affect, Normal Mood Skin: Warm, Dry, Intact, Normal Color, No Rash Associated features: No: Warmth, Tenderness, Lymphangitis Departure - Departure Disposition: Refer to Observation Clinical Impression: Hyponatremia, Hyperkalemia - Discharge Information Referrals: PCP,None [Primary Care Provider] - Forms: ED Department Discharge Sepsis Event Note (ED) - Evaluation Sepsis Screening Result: No Definite Risk <Dino Andersen - Last Filed: 06/28/21 22:26> Course - Vital Signs Last Recorded V/S: Last Vital Signs Temp 36.2 C 06/28/21 15:35 Pulse 95 06/28/21 15:35 Resp 15 06/28/21 15:35 BP 132/67 06/28/21 15:35 Pulse Ox 98 06/28/21 15:35 - Orders/Labs/Meds Orders: Active Orders 24 hr Category Date Time Status CULTURE URINE [RM] Stat Lab 06/28/21 17:00 Received Labs: Laboratory Tests 06/28/21 06/28/21 06/28/21 Range/Units 16:55 17:00 17:25 WBC 15.6 H (4.5-11.0) K/uL RBC 4.85 (4.30-5.90) M/uL Hgb 11.6 L D (12.0-15.0) g/dL Hct 35.9 L (40.0-54.0) % MCV 74 L (80-98) fL MCH 24 L (27-31) pg MCHC 32 (32-36) % Plt Count 701 H (150-400) K/uL Sodium 124 L (140-148) mmol/L Potassium 5.9 H (3.6-5.2) mmol/L Chloride 89 L (100-108) mmol/L Carbon Dioxide 27 (21-32) mmol/L Anion Gap 13.9 (5.0-14.0) mmol/L BUN 20 H (7-18) mg/dL Creatinine 1.0 (0.8-1.3) mg/dL Est Cr Clr Drug Dosing 70.99 mL/min Estimated GFR (MDRD) > 60 (>60) Glucose 99 (74-106) mg/dL Calcium 9.2 (8.5-10.1) mg/dL Urine Color [place] A (YELLOW) Urine Appearance Cloudy A (CLEAR) Urine pH 5.5 (5.0-8.0) Ur Specific [place] 1.020 (1.008-1.030) Urine Protein Trace H (NEGATIVE) mg/dL Urine Glucose (UA) Negative (NEGATIVE) mg/dL Urine Ketones Trace H (NEGATIVE) mg/dL Urine Occult Blood Moderate H (NEGATIVE) Urine Nitrite Positive H (NEGATIVE) Urine Bilirubin Negative (NEGATIVE) Urine Urobilinogen 0.2 (0.2-1.0) EU/dL Ur Leukocyte Esterase Small H (NEGATIVE) Urine RBC 30-40 H (0-5) Urine WBC 5-10 H (0-5) Ur Epithelial Cells Few Amorphous Sediment Moderate Urine Bacteria Many Urine Mucus Few 06/28/ Range/Units 19:43 WBC (4.5-11.0) K/uL RBC (4.30-5.90) M/uL Hgb (12.0-15.0) g/dL Hct (40.0-54.0) % MCV (80-98) fL MCH (27-31) pg MCHC (32-36) % Plt Count (150-400) K/uL Sodium 122 L (140-148) mmol/L Potassium 6.4 H* (3.6-5.2) mmol/L Chloride 90 L (100-108) mmol/L Carbon Dioxide 23 (21-32) mmol/L Anion Gap 15.4 H (5.0-14.0) mmol/L BUN 20 H (7-18) mg/dL Creatinine 0.9 (0.8-1.3) mg/dL Est Cr Clr Drug Dosing 78.87 mL/min Estimated GFR (MDRD) > 60 (>60) Glucose 95 (74-106) mg/dL Calcium 8.9 (8.5-10.1) mg/dL Urine Color (YELLOW) Urine Appearance (CLEAR) Urine pH (5.0-8.0) Ur Specific [place] (1.008-1.030) Urine Protein (NEGATIVE) mg/dL Urine Glucose (UA) (NEGATIVE) mg/dL Urine Ketones (NEGATIVE) mg/dL Urine Occult Blood (NEGATIVE) Urine Nitrite (NEGATIVE) Urine Bilirubin (NEGATIVE) Urine Urobilinogen (0.2-1.0) EU/dL Ur Leukocyte Esterase (NEGATIVE) Urine RBC (0-5) Urine WBC (0-5) Ur Epithelial Cells Amorphous Sediment Urine Bacteria Urine Mucus Meds: Medications Discontinued Medications Generic Name Dose Route Start Last Admin Trade Name Freq PRN Reason Stop Dose Admin Sodium Chloride 1,000 mls @ 1,000 mls/hr 06/28/21 18:21 06/28/21 18:56 Normal Saline IV 06/28/21 19:20 1,000 mls/hr .BOLUS ONE Administration Ceftriaxone Sodium 1 gm/ 50 mls @ 100 mls/hr 06/28/21 18:22 06/28/21 18:59 Sodium Chloride IV 06/28/21 18:51 100 mls/hr ONETIME ONE Administration - Re-Assessments/Exams Free Text/Narrative Re-Assessment/Exam: 06/28/21 22:11 patient received an additional liter of normal saline and had a recheck of his sodium and potassium. His sodium is actually dropped a little further from 124 to 122 and his potassium is gone up a little bit from 5.9 to 6.4. At this point, the patient will need to be hospitalized for hyponatremia and probably receive hypertonic saline. I did talk with Mell who is his sister who reports the patient eats between 4 and 6 bananas a day which is likely the nidus for his hyperkalemia. She states that he does that because the only thing that keeps his stools more formed with his colostomy. His sister has been talking to them incessantly about eating this much potassium and how it will affect his body. The patient would like to go to [facility], however, they are not the closest facility that can handle this patient and he is currently requiring correction of his hyponatremia so this will not be happening today. I will discussed the case with Dr. Forrest and initiate the hypertonic saline in the ED. Patient will likely come in on observation for treatment. 06/28/21 22:23 I discussed the change in sodium and potassium following the normal saline 0.9% bolus with Dr. Reyes who recommended we continue to use 0.9% normal saline and initiate Lasix that this may be SIADH. The Lasix should also help drop the patient's potassium. We did add an LDH to the patient's labs to to assess for SIADH. He agreed with the admission to the floor of the patient. Departure - Departure Time of Disposition: 22:14 Sepsis Event Note (ED) - Focused Exam Vital Signs: Vital Signs Temp Pulse Resp BP Pulse Ox 06/28/21 15:35 36.2 C 95 15 132/67 98 06/28/21 15:20 36.2 C 95 15 132/67 98
[2021-06-28] MEDS ORDERED: Sodium Chloride 0.9% 1,000 ML IV ONE ×2 (18:21→22:21)
[2021-06-28] MEDS ORDERED: cefTRIAXone 1 GM in Sodium Chloride 0.9% 50 ML IV ONE (18:22)
[2021-06-28] MEDS ORDERED: Furosemide 40 MG/4 ML VIAL IVPUSH ONE (22:21)
[2021-06-28] MEDS ORDERED: HYDROMORPHONE HCL 8 MG PO PRN (23:12)
--- NOTE | 2021-06-29 00:31 | HP ---
CHIEF COMPLAINT: Weakness. 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 It sounds like maybe they have just been doing immunotherapy and he is supposed to go down to [facility] next week for another round of immunotherapy, but he became progressively weak, having diarrhea and he has not been able to eat much of anything, but has been able the eat bananas, which he has been eating about three a day. The patient came into the emergency room for further evaluation, was noted to have low sodium and elevated potassium. I was asked to admit the patient for further evaluation and treatment. PAST MEDICAL HISTORY: Colorectal cancer with resection and ostomy; bladder cancer and prostate cancer with resection of both these with urine bag; and buttocks cancer. He denies really any other significant medical problems. CURRENT MEDICATIONS: Dilaudid 8 mg q.3 hours p.r.n., levothyroxine 75 mcg daily, and methadone 30 mg q.8 hours that he cannot take scheduled. ALLERGIES: NO KNOWN DRUG ALLERGIES. SOCIAL HISTORY: He smoked for about 10 years between 31 and 41 and then quit. No alcohol use. FAMILY HISTORY: Positive for cancer in the mother's side of the family. REVIEW OF SYSTEMS: Denies headaches or vision changes. He states he has dry mouth. Has not had much of an appetite. No chest pain or shortness of breath. Has had problems with some nausea and diarrhea. He does have the urine bag. He has had no fever. No swelling in his legs. No specific skin problems other than the cancer in the anal cleft area of his buttocks. No neurologic complaints reported other than just weakness. PHYSICAL EXAMINATION: VITAL SIGNS: Temp 36.2, pulse 95, blood pressure 132/67, respiratory rate 15, and O2 saturation 98% on room air. HEENT: Pharynx, slightly dry mucous membranes. Dentures, top and bottom. NECK: Supple. No adenopathy, thyromegaly, JVD, or carotid bruits. LUNGS: Clear. HEART: Regular without murmurs. CHEST WALL: He has a port in the right upper chest. ABDOMEN: Soft. No significant tenderness. He does have the urine bag on the left side of his abdomen and his ostomy for bowel on the right side. EXTREMITIES: No significant edema. No pain. SKIN: Negative other than in the anal cleft buttocks area, he does have a large protruding mass with drainage. NEUROLOGIC: Cranial nerves 2 through 12 are grossly intact, but he is generally weak. LABORATORY DATA: Initially sodium was 124 and after IV fluids did drop to 122, potassium went from 5.9 to 6.4, creatinine 1.0, BUN is 20, and glucose 99. White count 15.6, hemoglobin 11.6, and platelets 701,000. Urinalysis did show 30 to 40 red cells and 5 to 10 white cells. Cultures are pending. ASSESSMENT: 1. Generalized weakness with hypokalemia. The patient did get IV fluids in the emergency room and then hypertonic saline. We will be rechecking his sodium. 2. Hyperkalemia, likely related to increased banana use, which we will hold. The patient did receive 40 mg of by IV Lasix in the emergency room, and we will recheck his potassium. 3. Possible urinary tract infection, although with his urine bag having some red white cells certainly would be expected. Await culture results. The patient was given IV Rocephin in the emergency room. We will admit him as inpatient, anticipate more than two midnight stays. Transfer his care to the hospitalist service in the morning. 4. Four different types of cancer with colorectal cancer, bladder and prostate cancer with resections and ostomy bags, and the buttocks cancer that he is supposed to go down to [facility] next week for immunotherapy. 5. Hypothyroidism. We will continue with his levothyroxine. 6. Chronic pain. We will continue with his Dilaudid and methadone as scheduled that he gets at home. Dameon Forrest MD /[id number]
[2021-06-29] MEDS ORDERED: METHADONE 10 MG PO ONE (00:45)
[2021-06-29] MEDS ORDERED: METHADONE 10 MG PO SCH (08:00)
[2021-06-29] MEDS ORDERED: Methadone 10 MG Tab PO SCH ×2 (08:00→08:41)
[2021-06-29] MEDS: HYDROMORPHONE HCL 8 MG PO PRN ×5 (08:34→22:54)
[2021-06-29] MEDS: Levothyroxine 25 MCG Tab PO SCH (08:35)
[2021-06-29] MEDS: Methadone 10 MG Tab PO SCH ×2 (08:45→16:18)
[2021-06-29] MEDS ORDERED: Sodium Chloride 0.9% 1,000 ML IV SCH ×2 (09:45→12:45)
--- NOTE | 2021-06-29 12:38 | PCM.PN ---
- General Info Date of Service: 06/29/21 Subjective Update: No acute events overnight following admission. Patient reports that he feels better today than yesterday. Less fatigue and improved appetite. Chronic pain is stable. Ostomy output is stable. No fevers. Urine culture growing a gram- negative deann with identification pending. Sodium has improved to 128. Potassium level has normalized. Functional Status: Reports: Pain Controlled, Tolerating Diet - Review of Systems General: Reports: Weakness. Denies: Fever - Patient Data Vitals - Most Recent: Last Vital Signs Temp 36.7 C 06/29/21 10:24 Pulse 65 06/29/21 10:24 Resp 18 06/29/21 10:24 BP 93/58 L 06/29/21 10:24 Pulse Ox 96 06/29/21 10:24 Weight - Most Recent: 84.368 kg I&O - Last 24 Hours: Intake & Output 06/28/21 06/29/21 06/29/21 22:59 06:59 14:59 Intake Total 350 Output Total 800 Balance -450 Lab Results Last 24 Hours: Laboratory Results - last 24 hr 06/28/21 06/28/21 06/28/21 Range/Units 16:55 17:00 17:25 WBC 15.6 H (4.5-11.0) K/uL RBC 4.85 (4.30-5.90) M/uL Hgb 11.6 L D (12.0-15.0) g/dL Hct 35.9 L (40.0-54.0) % MCV 74 L (80-98) fL MCH 24 L (27-31) pg MCHC 32 (32-36) % Plt Count 701 H (150-400) K/uL Neut % (Auto) (36-66) % Lymph % (Auto) (24-44) % Crockett % (Auto) (2-6) % Eos % (Auto) (2-4) % Baso % (Auto) (0-1) % Sodium 124 L (140-148) mmol/L Potassium 5.9 H (3.6-5.2) mmol/L Chloride 89 L (100-108) mmol/L Carbon Dioxide 27 (21-32) mmol/L Anion Gap 13.9 (5.0-14.0) mmol/L BUN 20 H (7-18) mg/dL Creatinine 1.0 (0.8-1.3) mg/dL Est Cr Clr Drug Dosing 70.99 mL/min Estimated GFR (MDRD) > 60 (>60) Glucose 99 (74-106) mg/dL Calcium 9.2 (8.5-10.1) mg/dL Lactate Dehydrogenase (85-227) U/L Urine Color [place] A (YELLOW) Urine Appearance Cloudy A (CLEAR) Urine pH 5.5 (5.0-8.0) Ur Specific [place]andrews 1.020 (1.008-1.030) Urine Protein Trace H (NEGATIVE) mg/dL Urine Glucose (UA) Negative (NEGATIVE) mg/dL Urine Ketones Trace H (NEGATIVE) mg/dL Urine Occult Blood Moderate H (NEGATIVE) Urine Nitrite Positive H (NEGATIVE) Urine Bilirubin Negative (NEGATIVE) Urine Urobilinogen 0.2 (0.2-1.0) EU/dL Ur Leukocyte Esterase Small H (NEGATIVE) Urine RBC 30-40 H (0-5) Urine WBC 5-10 H (0-5) Ur Epithelial Cells Few Amorphous Sediment Moderate Urine Bacteria Many Urine Mucus Few 06/28/21 06/28/21 06/29/21 Range/Units 19:43 21:35 04:00 WBC 13.9 H (4.5-11.0) K/uL RBC 4.11 L (4.30-5.90) M/uL Hgb 9.9 L (12.0-15.0) g/dL Hct 31.1 L (40.0-54.0) % MCV 76 L (80-98) fL MCH 24 L (27-31) pg MCHC 32 (32-36) % Plt Count 538 H (150-400) K/uL Neut % (Auto) 78.6 H (36-66) % Lymph % (Auto) 11.1 L (24-44) % Crockett % (Auto) 9.3 H (2-6) % Eos % (Auto) 0.8 L (2-4) % Baso % (Auto) 0.2 (0-1) % Sodium 122 L (140-148) mmol/L Potassium 6.4 H* (3.6-5.2) mmol/L Chloride 90 L (100-108) mmol/L Carbon Dioxide 23 (21-32) mmol/L Anion Gap 15.4 H (5.0-14.0) mmol/L BUN 20 H (7-18) mg/dL Creatinine 0.9 (0.8-1.3) mg/dL Est Cr Clr Drug Dosing 78.87 mL/min Estimated GFR (MDRD) > 60 (>60) Glucose 95 (74-106) mg/dL Calcium 8.9 (8.5-10.1) mg/dL Lactate Dehydrogenase 174 (85-227) U/L Urine Color (YELLOW) Urine Appearance (CLEAR) Urine pH (5.0-8.0) Ur Specific Mcandrews (1.008-1.030) Urine Protein (NEGATIVE) mg/dL Urine Glucose (UA) (NEGATIVE) mg/dL Urine Ketones (NEGATIVE) mg/dL Urine Occult Blood (NEGATIVE) Urine Nitrite (NEGATIVE) Urine Bilirubin (NEGATIVE) Urine Urobilinogen (0.2-1.0) EU/dL Ur Leukocyte Esterase (NEGATIVE) Urine RBC (0-5) Urine WBC (0-5) Ur Epithelial Cells Amorphous Sediment Urine Bacteria Urine Mucus 06/29/21 Range/Units 04:00 WBC (4.5-11.0) K/uL RBC (4.30-5.90) M/uL Hgb (12.0-15.0) g/dL Hct (40.0-54.0) % MCV (80-98) fL MCH (27-31) pg MCHC (32-36) % Plt Count (150-400) K/uL Neut % (Auto) (36-66) % Lymph % (Auto) (24-44) % Crockett % (Auto) (2-6) % Eos % (Auto) (2-4) % Baso % (Auto) (0-1) % Sodium 128 L (140-148) mmol/L Potassium 4.2 (3.6-5.2) mmol/L Chloride 93 L (100-108) mmol/L Carbon Dioxide 27 (21-32) mmol/L Anion Gap 12.2 (5.0-14.0) mmol/L BUN 16 (7-18) mg/dL Creatinine 1.0 (0.8-1.3) mg/dL Est Cr Clr Drug Dosing 72.20 mL/min Estimated GFR (MDRD) > 60 (>60) Glucose 102 (74-106) mg/dL Calcium 8.6 (8.5-10.1) mg/dL Lactate Dehydrogenase (85-227) U/L Urine Color (YELLOW) Urine Appearance (CLEAR) Urine pH (5.0-8.0) Ur Specific Mcandrews (1.008-1.030) Urine Protein (NEGATIVE) mg/dL Urine Glucose (UA) (NEGATIVE) mg/dL Urine Ketones (NEGATIVE) mg/dL Urine Occult Blood (NEGATIVE) Urine Nitrite (NEGATIVE) Urine Bilirubin (NEGATIVE) Urine Urobilinogen (0.2-1.0) EU/dL Ur Leukocyte Esterase (NEGATIVE) Urine RBC (0-5) Urine WBC (0-5) Ur Epithelial Cells Amorphous Sediment Urine Bacteria Urine Mucus Tr Results Last 24 Hours: Microbiology 06/28/21 17:00 Urine Culture - Preliminary Urine, Clean Catch 06/28/21 17:04 Clostridioides difficile (PCR) - Final Stool / Feces - Stool, Liquid Med Orders - Current: Current Medications Heparin Sodium (Porcine) (Heparin Sodium 100 Units/Ml 5 Ml Syringe) 500 units FLUSH ASDIRECTED PRN PRN Reason: IV Use Last Admin: 06/29/21 01:03 Dose: 500 units Documented by: Sodium Chloride (Normal Saline) 1,000 mls @ 100 mls/hr IV ASDIRECTED LYNDSAY Ceftriaxone Sodium 2 gm/ (Sodium Chloride) 50 mls @ 100 mls/hr IV Q24H [facility] Levothyroxine Sodium (Levothyroxine 25 Mcg Tab) 75 mcg PO ACBREAKFAST [facility] Last Admin: 06/29/21 08:35 Dose: 75 mcg Documented by: Methadone HCl (Methadone 10 Mg Tab) 30 mg PO Q8H [facility] Last Admin: 06/29/21 08:45 Dose: Not Given Documented by: (Hydromorphone Hcl [ Dilaudid] 8 Mg Tablet)Own Med 0 mg PO Q3H PRN PRN Reason: Pain Last Admin: 06/29/21 11:47 Dose: 24 mg Documented by: Discontinued Medications Furosemide (Furosemide 40 Mg/4 Ml Vial) 40 mg IVPUSH ONETIME ONE Stop: 06/28/21 22:22 Last Admin: 06/28/21 22:28 Dose: 40 mg Documented by: Heparin Sodium (Porcine) (Heparin Sodium 100 Units/Ml 5 Ml Syringe) Confirm Administered Dose 500 units .ROUTE .STK-MED ONE Stop: 06/29/21 01:01 Last Admin: 06/29/21 01:32 Dose: Not Given Documented by: Sodium Chloride (Normal Saline) 1,000 mls @ 1,000 mls/hr IV .BOLUS ONE Stop: 06/28/21 19:20 Last Admin: 06/28/21 18:56 Dose: 1,000 mls/hr Documented by: Ceftriaxone Sodium 1 gm/ (Sodium Chloride) 50 mls @ 100 mls/hr IV ONETIME ONE Stop: 06/28/21 18:51 Last Admin: 06/28/21 18:59 Dose: 100 mls/hr Documented by: Sodium Chloride (Normal Saline) 1,000 mls @ 500 mls/hr IV .BOLUS ONE Stop: 06/29/21 00:20 Last Admin: 06/28/21 22:29 Dose: 500 mls/hr Documented by: Sodium Chloride (Normal Saline) 1,000 mls @ 500 mls/hr IV ASDIRECTED [facility] Stop: 06/29/21 11:46 Methadone HCl (Methadone 10 Mg Tab Own Med) 30 mg PO Q8H [facility] Methadone HCl (Methadone 10 Mg Tab Own Med) 30 mg PO NOW ONE Stop: 06/29/21 00:46 Last Admin: 06/29/21 00:58 Dose: 30 mg Documented by: (Hydromorphone Hcl [ Dilaudid] 8 Mg Tablet)Own Med 24 mg PO Q3H PRN PRN Reason: Pain Last Admin: 06/29/21 04:16 Dose: 24 mg Documented by: - Exam General: Alert, Oriented, Cooperative, No Acute Distress Lungs: Normal Respiratory Effort GI/Abdominal Exam: Soft, No Distention Extremities: No Pedal Edema Skin: Warm, Dry Psy/Mental Status: Alert, Normal Affect - Patient Data Lab Results Last 24 hrs: Laboratory Results - last 24 hr 06/28/21 06/28/21 06/28/21 Range/Units 16:55 17:00 17:25 WBC 15.6 H (4.5-11.0) K/uL RBC 4.85 (4.30-5.90) M/uL Hgb 11.6 L D (12.0-15.0) g/dL Hct 35.9 L (40.0-54.0) % MCV 74 L (80-98) fL MCH 24 L (27-31) pg MCHC 32 (32-36) % Plt Count 701 H (150-400) K/uL Neut % (Auto) (36-66) % Lymph % (Auto) (24-44) % [place]ck[place] % (Auto) (2-6) % Eos % (Auto) (2-4) % Baso % (Auto) (0-1) % Sodium 124 L (140-148) mmol/L Potassium 5.9 H (3.6-5.2) mmol/L Chloride 89 L (100-108) mmol/L Carbon Dioxide 27 (21-32) mmol/L Anion Gap 13.9 (5.0-14.0) mmol/L BUN 20 H (7-18) mg/dL Creatinine 1.0 (0.8-1.3) mg/dL Est Cr Clr Drug Dosing 70.99 mL/min Estimated GFR (MDRD) > 60 (>60) Glucose 99 (74-106) mg/dL Calcium 9.2 (8.5-10.1) mg/dL Lactate Dehydrogenase (85-227) U/L Urine Color [place] A (YELLOW) Urine Appearance Cloudy A (CLEAR) Urine pH 5.5 (5.0-8.0) Ur Specific [place] 1.020 (1.008-1.030) Urine Protein Trace H (NEGATIVE) mg/dL Urine Glucose (UA) Negative (NEGATIVE) mg/dL Urine Ketones Trace H (NEGATIVE) mg/dL Urine Occult Blood Moderate H (NEGATIVE) Urine Nitrite Positive H (NEGATIVE) Urine Bilirubin Negative (NEGATIVE) Urine Urobilinogen 0.2 (0.2-1.0) EU/dL Ur Leukocyte Esterase Small H (NEGATIVE) Urine RBC 30-40 H (0-5) Urine WBC 5-10 H (0-5) Ur Epithelial Cells Few Amorphous Sediment Moderate Urine Bacteria Many Urine Mucus Few 06/28/21 06/28/21 06/29/21 Range/Units 19:43 21:35 04:00 WBC 13.9 H (4.5-11.0) K/uL RBC 4.11 L (4.30-5.90) M/uL Hgb 9.9 L (12.0-15.0) g/dL Hct 31.1 L (40.0-54.0) % MCV 76 L (80-98) fL MCH 24 L (27-31) pg MCHC 32 (32-36) % Plt Count 538 H (150-400) K/uL Neut % (Auto) 78.6 H (36-66) % Lymph % (Auto) 11.1 L (24-44) % [place] % (Auto) 9.3 H (2-6) % Eos % (Auto) 0.8 L (2-4) % Baso % (Auto) 0.2 (0-1) % Sodium 122 L (140-148) mmol/L Potassium 6.4 H* (3.6-5.2) mmol/L Chloride 90 L (100-108) mmol/L Carbon Dioxide 23 (21-32) mmol/L Anion Gap 15.4 H (5.0-14.0) mmol/L BUN 20 H (7-18) mg/dL Creatinine 0.9 (0.8-1.3) mg/dL Est Cr Clr Drug Dosing 78.87 mL/min Estimated GFR (MDRD) > 60 (>60) Glucose 95 (74-106) mg/dL Calcium 8.9 (8.5-10.1) mg/dL Lactate Dehydrogenase 174 (85-227) U/L Urine Color (YELLOW) Urine Appearance (CLEAR) Urine pH (5.0-8.0) Ur Specific Mcandrews (1.008-1.030) Urine Protein (NEGATIVE) mg/dL Urine Glucose (UA) (NEGATIVE) mg/dL Urine Ketones (NEGATIVE) mg/dL Urine Occult Blood (NEGATIVE) Urine Nitrite (NEGATIVE) Urine Bilirubin (NEGATIVE) Urine Urobilinogen (0.2-1.0) EU/dL Ur Leukocyte Esterase (NEGATIVE) Urine RBC (0-5) Urine WBC (0-5) Ur Epithelial Cells Amorphous Sediment Urine Bacteria Urine Mucus 06/29/21 Range/Units 04:00 WBC (4.5-11.0) K/uL RBC (4.30-5.90) M/uL Hgb (12.0-15.0) g/dL Hct (40.0-54.0) % MCV (80-98) fL MCH (27-31) pg MCHC (32-36) % Plt Count (150-400) K/uL Neut % (Auto) (36-66) % Lymph % (Auto) (24-44) % [place] % (Auto) (2-6) % Eos % (Auto) (2-4) % Baso % (Auto) (0-1) % Sodium 128 L (140-148) mmol/L Potassium 4.2 (3.6-5.2) mmol/L Chloride 93 L (100-108) mmol/L Carbon Dioxide 27 (21-32) mmol/L Anion Gap 12.2 (5.0-14.0) mmol/L BUN 16 (7-18) mg/dL Creatinine 1.0 (0.8-1.3) mg/dL Est Cr Clr Drug Dosing 72.20 mL/min Estimated GFR (MDRD) > 60 (>60) Glucose 102 (74-106) mg/dL Calcium 8.6 (8.5-10.1) mg/dL Lactate Dehydrogenase (85-227) U/L Urine Color (YELLOW) Urine Appearance (CLEAR) Urine pH (5.0-8.0) Ur Specific [place]andrews (1.008-1.030) Urine Protein (NEGATIVE) mg/dL Urine Glucose (UA) (NEGATIVE) mg/dL Urine Ketones (NEGATIVE) mg/dL Urine Occult Blood (NEGATIVE) Urine Nitrite (NEGATIVE) Urine Bilirubin (NEGATIVE) Urine Urobilinogen (0.2-1.0) EU/dL Ur Leukocyte Esterase (NEGATIVE) Urine RBC (0-5) Urine WBC (0-5) Ur Epithelial Cells Amorphous Sediment Urine Bacteria Urine Mucus Result Diagrams: 06/29/21 04:00 06/29/21 04:00 Tr Results Last 24 hrs: Microbiology 06/28/21 17:00 Urine Culture - Preliminary Urine, Clean Catch 06/28/21 17:04 Clostridioides difficile (PCR) - Final Stool / Feces - Stool, Liquid Sepsis Event Note - Evaluation Sepsis Screening Result: Sepsis Risk - Focused Exam Vital Signs: Vital Signs Temp Pulse Resp BP Pulse Ox 06/29/21 10:24 36.7 C 65 18 93/58 L 96 06/29/21 07:00 35.7 C L 74 18 101/53 L 96 06/29/21 04:15 36.2 C 68 18 100/52 L 97 - Problem List Review Problem List Initiated/Reviewed/Updated: Yes - My Orders Last 24 Hours: My Active Orders 06/29/21 12:36 Antiembolic Devices [RC] .Routine SCD [Sequential Compression Device] [OM.PC] Routine 06/29/21 12:45 Sodium Chloride 0.9% [Normal Saline] 1,000 ml IV ASDIRECTED 06/29/21 19:00 cefTRIAXone [Rocephin] 2 gm Sodium Chloride 0.9% [Normal Saline] 50 ml IV Q24H 06/30/21 05:00 BASIC METABOLIC PANEL,BMP [CHEM] Timed CBC W/O DIFF,HEMOGRAM [HEME] Timed (1) - Plan Plan:: ASSESSMENT AND PLAN - Acute hyponatremia, hypovolemic-poor appetite and intake for the past couple of weeks as well as diarrhea. Improving with normal saline infusion but still not taking in great amounts of fluid. -Continue IV fluids today -Repeat sodium in the morning Hyperkalemia-probably a combination of increased potassium intake as well as poor clearance with dehydration. Potassium now normal. 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 These are all followed by the [facility]. -Local wound cares Maintenance issues - -DVT prophylaxis-SCDs -GI prophylaxis-not indicated -Nutrition-regular -Pina catheter-has chronic urostomy Disposition -I anticipate discharge home with home care after the hospital stay Primary care physician - Timoteo Reyes M.D.
[2021-06-29] MEDS: cefTRIAXone 2 GM in Sodium Chloride 0.9% 50 ML IV SCH (19:38)
[2021-06-30] MEDS: Methadone 10 MG Tab PO SCH ×3 (01:01→16:57)
[2021-06-30] MEDS: HYDROMORPHONE HCL 8 MG PO PRN ×5 (02:36→20:06)
[2021-06-30] MEDS: Levothyroxine 25 MCG Tab PO SCH (08:22)
[2021-06-30] MEDS ORDERED: Atropine/Diphenoxylate 0.025-2.5 MG Tab PO PRN (11:04)
--- NOTE | 2021-06-30 11:06 | PCM.PN ---
- General Info Date of Service: 06/30/21 Subjective Update: No acute events overnight. Patient does report some diarrhea filling his ostomy. He had to wake up 3 times last night to empty it. No significant abdominal pain. His chronic pain is stable and controlled with his usual home medications. No fevers. Sodium is stable but remains low. Urine culture grew out Citrobacter that was sensitive to the ceftriaxone. Potassium remains normal. Appetite is improving. A little weak but otherwise doing okay. Functional Status: Reports: Pain Controlled, Tolerating Diet - Review of Systems General: Reports: Weakness Gastrointestinal: Reports: Diarrhea - Patient Data Vitals - Most Recent: Last Vital Signs Temp 34.7 C L 06/30/21 10:11 Pulse 69 06/30/21 10:11 Resp 18 06/30/21 10:11 BP 102/53 L 06/30/21 10:11 Pulse Ox 98 06/30/21 10:11 Weight - Most Recent: 84.368 kg I&O - Last 24 Hours: Intake & Output 06/29/21 06/30/21 06/30/21 22:59 06:59 14:59 Intake Total 1256 1043 500 Output Total 900 975 Balance 356 68 500 Lab Results Last 24 Hours: Laboratory Results - last 24 hr 06/30/21 06/30/21 Range/Units 05:30 05:30 WBC 12.2 H (4.5-11.0) K/uL RBC 3.90 L (4.30-5.90) M/uL Hgb 9.6 L (12.0-15.0) g/dL Hct 29.3 L (40.0-54.0) % MCV 75 L (80-98) fL MCH 25 L (27-31) pg MCHC 33 (32-36) % Plt Count 474 H (150-400) K/uL Sodium 125 L (140-148) mmol/L Potassium 4.8 (3.6-5.2) mmol/L Chloride 93 L (100-108) mmol/L Carbon Dioxide 24 (21-32) mmol/L Anion Gap 12.8 (5.0-14.0) mmol/L BUN 12 (7-18) mg/dL Creatinine 0.8 (0.8-1.3) mg/dL Est Cr Clr Drug Dosing 90.25 mL/min Estimated GFR (MDRD) > 60 (>60) Glucose 82 (74-106) mg/dL Calcium 8.4 L (8.5-10.1) mg/dL Tr Results Last 24 Hours: Microbiology 06/28/21 17:00 Urine Culture - Final Urine, Clean Catch Citrobacter Freundii Med Orders - Current: Current Medications Heparin Sodium (Porcine) (Heparin Sodium 100 Units/Ml 5 Ml Syringe) 500 units FLUSH ASDIRECTED PRN PRN Reason: IV Use Last Admin: 06/29/21 01:03 Dose: 500 units Documented by: Ceftriaxone Sodium 2 gm/ (Sodium Chloride) 50 mls @ 100 mls/hr IV Q24H [facility] Last Admin: 06/29/21 19:38 Dose: 100 mls/hr Documented by: Levothyroxine Sodium (Levothyroxine 25 Mcg Tab) 75 mcg PO ACBREAKFAST [facility] Last Admin: 06/30/21 08:22 Dose: 75 mcg Documented by: Methadone HCl (Methadone 10 Mg Tab) 30 mg PO Q8H [facility] Last Admin: 06/30/21 08:22 Dose: 30 mg Documented by: (Hydromorphone Hcl [ Dilaudid] 8 Mg Tablet)Own Med 0 mg PO Q3H PRN PRN Reason: Pain Last Admin: 06/30/21 05:52 Dose: 24 mg Documented by: Discontinued Medications Furosemide (Furosemide 40 Mg/4 Ml Vial) 40 mg IVPUSH ONETIME ONE Stop: 06/28/21 22:22 Last Admin: 06/28/21 22:28 Dose: 40 mg Documented by: Heparin Sodium (Porcine) (Heparin Sodium 100 Units/Ml 5 Ml Syringe) Confirm Administered Dose 500 units .ROUTE .STK-MED ONE Stop: 06/29/21 01:01 Last Admin: 06/29/21 01:32 Dose: Not Given Documented by: Sodium Chloride (Normal Saline) 1,000 mls @ 1,000 mls/hr IV .BOLUS ONE Stop: 06/28/21 19:20 Last Admin: 06/28/21 18:56 Dose: 1,000 mls/hr Documented by: Ceftriaxone Sodium 1 gm/ (Sodium Chloride) 50 mls @ 100 mls/hr IV ONETIME ONE Stop: 06/28/21 18:51 Last Admin: 06/28/21 18:59 Dose: 100 mls/hr Documented by: Sodium Chloride (Normal Saline) 1,000 mls @ 500 mls/hr IV .BOLUS ONE Stop: 06/29/21 00:20 Last Admin: 06/28/21 22:29 Dose: 500 mls/hr Documented by: Sodium Chloride (Normal Saline) 1,000 mls @ 500 mls/hr IV ASDIRECTED LYNDSAY Stop: 06/29/21 11:46 Sodium Chloride (Normal Saline) 1,000 mls @ 100 mls/hr IV ASDIRECTED [facility] Last Admin: 06/29/21 16:22 Dose: 100 mls/hr Documented by: Methadone HCl (Methadone 10 Mg Tab Own Med) 30 mg PO Q8H [facility] Methadone HCl (Methadone 10 Mg Tab Own Med) 30 mg PO NOW ONE Stop: 06/29/21 00:46 Last Admin: 06/29/21 00:58 Dose: 30 mg Documented by: (Hydromorphone Hcl [ Dilaudid] 8 Mg Tablet)Own Med 24 mg PO Q3H PRN PRN Reason: Pain Last Admin: 06/29/21 04:16 Dose: 24 mg Documented by: - Exam Quality Assessment: No: Supplemental Oxygen General: Alert, Oriented, Cooperative, No Acute Distress Lungs: Normal Respiratory Effort GI/Abdominal Exam: Soft, No Distention Extremities: No Pedal Edema Skin: Warm, Dry Psy/Mental Status: Alert, Normal Affect - Patient Data Lab Results Last 24 hrs: Laboratory Results - last 24 hr 06/30/21 06/30/21 Range/Units 05:30 05:30 WBC 12.2 H (4.5-11.0) K/uL RBC 3.90 L (4.30-5.90) M/uL Hgb 9.6 L (12.0-15.0) g/dL Hct 29.3 L (40.0-54.0) % MCV 75 L (80-98) fL MCH 25 L (27-31) pg MCHC 33 (32-36) % Plt Count 474 H (150-400) K/uL Sodium 125 L (140-148) mmol/L Potassium 4.8 (3.6-5.2) mmol/L Chloride 93 L (100-108) mmol/L Carbon Dioxide 24 (21-32) mmol/L Anion Gap 12.8 (5.0-14.0) mmol/L BUN 12 (7-18) mg/dL Creatinine 0.8 (0.8-1.3) mg/dL Est Cr Clr Drug Dosing 90.25 mL/min Estimated GFR (MDRD) > 60 (>60) Glucose 82 (74-106) mg/dL Calcium 8.4 L (8.5-10.1) mg/dL Result Diagrams: 06/30/21 05:30 06/30/21 05:30 Tr Results Last 24 hrs: Microbiology 06/28/21 17:00 Urine Culture - Final Urine, Clean Catch Citrobacter Freundii Sepsis Event Note - Evaluation Sepsis Screening Result: No Definite Risk - Focused Exam Vital Signs: Vital Signs Temp Pulse Resp BP Pulse Ox 06/30/21 10:11 34.7 C L 69 18 102/53 L 98 06/30/21 07:00 36.3 C 66 18 98/48 L 98 - Problem List Review Problem List Initiated/Reviewed/Updated: Yes - My Orders Last 24 Hours: My Active Orders 06/29/21 12:36 Antiembolic Devices [RC] .Routine SCD [Sequential Compression Device] [OM.PC] Routine 06/29/21 19:00 cefTRIAXone [Rocephin] 2 gm Sodium Chloride 0.9% [Normal Saline] 50 ml IV Q24H 06/30/21 11:04 Atropine/Diphenoxylate [Lomotil 0.025-2.5 MG] 1 tab PO QID PRN 06/30/21 11:15 Sodium Chloride 0.9% [Normal Saline] 1,000 ml IV ASDIRECTED 07/01/21 05:00 BASIC METABOLIC PANEL,BMP [CHEM] Timed CBC W/O DIFF,HEMOGRAM [HEME] Timed (1) - Plan Plan:: ASSESSMENT AND PLAN - Acute hyponatremia, hypovolemic-poor appetite and intake for the past couple of weeks as well as diarrhea. 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 Symptomatically he is feeling better. Intake is not great yet but is improving. -Continue gentle IV fluids today -Repeat sodium in the morning Hyperkalemia-probably a combination of increased potassium intake as well as poor clearance with dehydration. Potassium has remained normal. 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 These are all followed by the [facility]. -Lomotil for diarrhea -Increase activity as tolerated -Local wound cares -Symptomatic management of chronic pain Maintenance issues - -DVT prophylaxis-SCDs -GI prophylaxis-not indicated -Nutrition-regular -Pina catheter-has chronic urostomy Disposition -I anticipate discharge home with home care after the hospital stay likely tomorrow if stable overnight Primary care physician - Timoteo Reyes M.D.
[2021-06-30] MEDS ORDERED: Sodium Chloride 0.9% 1,000 ML IV SCH (11:15)
[2021-06-30] MEDS: cefTRIAXone 2 GM in Sodium Chloride 0.9% 50 ML IV SCH (18:49)
[2021-07-01] MEDS: Methadone 10 MG Tab PO SCH ×2 (01:24→08:09)
[2021-07-01 07:39] VITALS: BP 97/48; PULSE 68
[2021-07-01] MEDS: Levothyroxine 25 MCG Tab PO SCH (07:59)
[2021-07-01] MEDS: HYDROMORPHONE HCL 8 MG PO PRN ×2 (08:00→11:48)
--- NOTE | 2021-07-01 10:50 | PCM.DCSUM1 ---
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 He was admitted for management of severe hyponatremia, hyperkalemia, dehydration and a urinary tract infection. Diagnosis: Stroke: No - Discharge Data Discharge Date: 07/01/21 Discharge Disposition: Home, W Home Health Agency 06 Condition: Good - Referral to Home Health Date of Face to Face Encounter: 07/01/21 Reason for Homebound Status: chronic buttocks wound Primary Care Physician: PCP None Skilled Need: dressing changes - Discharge Diagnosis/Problem(s) (1) Hyponatremia SNOMED Code(s): 20772091 ICD Code: E87.1 - HYPO-OSMOLALITY AND HYPONATREMIA Status: Acute Current Visit: Yes (2) Hyperkalemia SNOMED Code(s): 85560198 ICD Code: E87.5 - HYPERKALEMIA Status: Acute Current Visit: Yes (3) Dehydration SNOMED Code(s): 55371383 ICD Code: E86.0 - DEHYDRATION Status: Acute Current Visit: Yes (4) Open wound of buttock SNOMED Code(s): 648382960 ICD Code: S31.809A - UNSPECIFIED OPEN WOUND OF UNSPECIFIED BUTTOCK, INIT ENCNTR Status: Chronic Current Visit: Yes Qualifiers: Encounter type: subsequent encounter Laterality: unspecified laterality Qualified Code(s): S31.809D - Unspecified open wound of unspecified buttock, subsequent encounter (5) Bladder cancer SNOMED Code(s): 651316148 ICD Code: C67.9 - MALIGNANT NEOPLASM OF BLADDER, UNSPECIFIED Status: Chronic Current Visit: Yes (6) Prostate cancer SNOMED Code(s): 220333804 ICD Code: C61 - MALIGNANT NEOPLASM OF PROSTATE Status: Chronic Current Visit: Yes (7) Colorectal cancer SNOMED Code(s): 048063510 ICD Code: C19 - MALIGNANT NEOPLASM OF RECTOSIGMOID JUNCTION Status: Chronic Current Visit: No - Patient Summary/Data Hospital Course: Bill presented to the emergency room with weakness, diarrhea and poor intake. In general he just did not feel very well. Work-up in the emergency room revealed hyperkalemia as well as hyponatremia. These were both thought to be secondary to significant dehydration with poor intake over the past 2 to 3 weeks. Patient was admitted to the hospital for further management giving the severity of the derangements of these electrolytes. There was also evidence for a urinary tract infection based on urinalysis. Patient was thought to be dehydrated so he received normal saline hydration to help with the hyponatremia. For the hyperkalemia, the patient received saline followed by a dose of furosemide. He was started on ceftriaxone for the presumed urinary tract infection. Morning after admission he is feeling moderately better but still having diarrhea and does not have much of an appetite. Strength is also off compared to baseline. His creatinine had remained stable. His sodium level had improved slightly and his potassium level had normalized. His urine culture at this point was growing a gram-negative deann. We elected to continue IV fluids and IV antibiotics an additional day with further improvement. The patient did remain weak but his sodium level was trending up. He was still having diarrhea and not taking in good quantity so we elected to keep him 1 more day. Over the last 24 hours he had a bigger improvement with resolution of the diarrhea following a dose of Lomotil. His appetite and intake have improved. Sodium has improved up to 128. His sodium may normally run in this range given the potential for SIADH with his multiple malignancies and high-dose pain medications. His potassium level has remained normal. He feels well enough to go home. He is stable and safe for discharge. We did set him up for home care to help with dressing changes if they are able. I did send him home with a prescription for nitrofurantoin to complete the treatment for his urinary tract infection. He has follow-up with the [facility] in several days. - Patient Instructions Diet: Regular Diet as Tolerated Activity: As Tolerated Showering/Bathing: May Shower Notify Provider of: Fever, Increased Pain Other/Special Instructions: 1. You were in the hospital for management of low sodium, high potassium and dehydration related to poor intake over the past couple of weeks. Your condition has improved with IV fluid hydration. You can continue to take the Lomotil as needed for diarrhea. We did also find evidence for a urinary tract infection caused by Citrobacter. I recommend additional antibiotic therapy with nitrofurantoin. Please take 100 mg twice daily for 9 doses. Your first dose outside of the hospital will be due tonight. 2. Continue your other home medications as previously prescribed. 3. Follow-up as scheduled with [facility] later in the week. 4. I have placed a referral to home health care. They will help to provide nursing care and some dressing changes to ease your transition home from the hospital. - Discharge Plan *PRESCRIPTION DRUG MONITORING PROGRAM REVIEWED*: No *COPY OF PRESCRIPTION DRUG MONITORING REPORT IN PATIENT SEBASTIEN: No Prescriptions/Med Rec: nitrofurantoin macrocrystaL [Nitrofurantoin] 100 mg PO BID #9 capsule Home Medications: Home Meds HYDROmorphone HCl [Dilaudid] 24 mg PO Q3H PRN 06/28/21 [History] Levothyroxine Sodium [Synthroid] 75 mcg PO DAILY 06/28/21 [History] Methadone 30 mg PO Q8H 06/28/21 [History] nitrofurantoin macrocrystaL [Nitrofurantoin] 100 mg PO BID #9 capsule 07/01/21 [Rx] Oxygen Therapy Mode: Room Air Patient Handouts: Nitrofurantoin tablets or capsules, Dehydration, Adult, [id number] Referrals: PCP,None [Primary Care Provider] - (f/u as scheduled with the [facility] this week ) - Discharge Summary/Plan Comment DC Time >30 min.: Yes (35-home care set up ) - Patient Data Vitals - Most Recent: Last Vital Signs Temp 36.1 C 07/01/21 07:37 Pulse 68 07/01/21 07:37 Resp 16 07/01/21 07:37 BP 97/48 L 07/01/21 07:37 Pulse Ox 94 L 07/01/21 07:37 Weight - Most Recent: 84.368 kg I&O - Last 24 hours: Intake & Output 06/30/21 07/01/21 07/01/21 22:59 06:59 14:59 Intake Total 3519 625 Output Total 825 150 100 Balance 2694 -150 525 Lab Results - Last 24 hrs: Laboratory Results - last 24 hr 07/01/21 07/01/21 Range/Units 05:58 05:58 WBC 9.3 (4.5-11.0) K/uL RBC 3.68 L (4.30-5.90) M/uL Hgb 8.7 L (12.0-15.0) g/dL Hct 27.8 L (40.0-54.0) % MCV 76 L (80-98) fL MCH 24 L (27-31) pg MCHC 31 L (32-36) % Plt Count 372 (150-400) K/uL Sodium 128 L (140-148) mmol/L Potassium 4.2 (3.6-5.2) mmol/L Chloride 95 L (100-108) mmol/L Carbon Dioxide 25 (21-32) mmol/L Anion Gap 12.2 (5.0-14.0) mmol/L BUN 9 (7-18) mg/dL Creatinine 0.7 L (0.8-1.3) mg/dL Est Cr Clr Drug Dosing 103.14 mL/min Estimated GFR (MDRD) > 60 (>60) Glucose 95 (74-106) mg/dL Calcium 8.2 L (8.5-10.1) mg/dL MILA Results - Last 24 hrs: Microbiology 06/28/21 17:00 Urine Culture - Final Urine, Clean Catch Citrobacter Freundii Med Orders - Current: Current Medications Diphenoxylate HCl/Atropine (Atropine/Diphenoxylate 0.025-2.5 Mg Tab) 1 tab PO QID PRN PRN Reason: Diarrhea Heparin Sodium (Porcine) (Heparin Sodium 100 Units/Ml 5 Ml Syringe) 500 units FLUSH ASDIRECTED PRN PRN Reason: IV Use Last Admin: 07/01/21 10:28 Dose: 500 units Documented by: Ceftriaxone Sodium 2 gm/ (Sodium Chloride) 50 mls @ 100 mls/hr IV Q24H [facility] Last Admin: 06/30/21 18:49 Dose: 100 mls/hr Documented by: Sodium Chloride (Normal Saline) 1,000 mls @ 50 mls/hr IV ASDIRECTED [facility] Last Admin: 06/30/21 13:50 Dose: 50 mls/hr Documented by: Levothyroxine Sodium (Levothyroxine 25 Mcg Tab) 75 mcg PO ACBREAKFAST [facility] Last Admin: 07/01/21 07:59 Dose: 75 mcg Documented by: Methadone HCl (Methadone 10 Mg Tab) 30 mg PO Q8H [facility] Last Admin: 07/01/21 08:09 Dose: 30 mg Documented by: (Hydromorphone Hcl [ Dilaudid] 8 Mg Tablet)Own Med 0 mg PO Q3H PRN PRN Reason: Pain Last Admin: 07/01/21 08:00 Dose: 24 mg Documented by: Discontinued Medications Furosemide (Furosemide 40 Mg/4 Ml Vial) 40 mg IVPUSH ONETIME ONE Stop: 06/28/21 22:22 Last Admin: 06/28/21 22:28 Dose: 40 mg Documented by: Heparin Sodium (Porcine) (Heparin Sodium 100 Units/Ml 5 Ml Syringe) Confirm Administered Dose 500 units .ROUTE .STK-MED ONE Stop: 06/29/21 01:01 Last Admin: 06/29/21 01:32 Dose: Not Given Documented by: Sodium Chloride (Normal Saline) 1,000 mls @ 1,000 mls/hr IV .BOLUS ONE Stop: 06/28/21 19:20 Last Admin: 06/28/21 18:56 Dose: 1,000 mls/hr Documented by: Ceftriaxone Sodium 1 gm/ (Sodium Chloride) 50 mls @ 100 mls/hr IV ONETIME ONE Stop: 06/28/21 18:51 Last Admin: 06/28/21 18:59 Dose: 100 mls/hr Documented by: Sodium Chloride (Normal Saline) 1,000 mls @ 500 mls/hr IV .BOLUS ONE Stop: 06/29/21 00:20 Last Admin: 06/28/21 22:29 Dose: 500 mls/hr Documented by: Sodium Chloride (Normal Saline) 1,000 mls @ 500 mls/hr IV ASDIRECTED LYNDSAY Stop: 06/29/21 11:46 Sodium Chloride (Normal Saline) 1,000 mls @ 100 mls/hr IV ASDIRECTED [facility] Last Admin: 06/29/21 16:22 Dose: 100 mls/hr Documented by: Methadone HCl (Methadone 10 Mg Tab Own Med) 30 mg PO Q8H [facility] Methadone HCl (Methadone 10 Mg Tab Own Med) 30 mg PO NOW ONE Stop: 06/29/21 00:46 Last Admin: 06/29/21 00:58 Dose: 30 mg Documented by: (Hydromorphone Hcl [ Dilaudid] 8 Mg Tablet)Own Med 24 mg PO Q3H PRN PRN Reason: Pain Last Admin: 06/29/21 04:16 Dose: 24 mg Documented by:
== END 2021-07-01 12:45 | disposition home health service (06) | DRG 644 ==
LOC: JP.ED 14:49 → JP.MS 23:10
PROVIDERS: ADMIT Family Medicine; ATTEND Internal Medicine
DX: E87.1 Hypo-osmolality and hyponatremia (principal); E87.6 Hypokalemia; H54.7 Unspecified visual loss; H91.90 Unspecified hearing loss, unspecified ear; Z86.711 Personal history of pulmonary embolism; Z87.820 Personal history of traumatic brain injury; Z85.46 Personal history of malignant neoplasm of prostate; Z85.038 Personal history of other malignant neoplasm of large intestine; Z85.51 Personal history of malignant neoplasm of bladder; Z92.21 Personal history of antineoplastic chemotherapy; E07.89 Other specified disorders of thyroid; T45.1X5S Adverse effect of antineoplastic and immunosuppressive drugs, sequela; E22.2 Syndrome of inappropriate secretion of antidiuretic hormone; N39.0 Urinary tract infection, site not specified; C19 Malignant neoplasm of rectosigmoid junction; E87.5 Hyperkalemia; E86.0 Dehydration; E03.9 Hypothyroidism, unspecified; Z87.891 Personal history of nicotine dependence; G89.29 Other chronic pain; C67.9 Malignant neoplasm of bladder, unspecified; C61 Malignant neoplasm of prostate; S31.809D Unspecified open wound of unspecified buttock, subsequent encounter; Z79.890 Hormone replacement therapy; Z79.899 Other long term (current) drug therapy; C44.509 Unspecified malignant neoplasm of skin of other part of trunk
CPT/HCPCS: 36415; 80048 ×2; 81001; 83615; 85027; 87086; 87088; 87186; 87493; J0696; J1940; J7030 ×2; 85025; A9270-GY; J1642

== ENCOUNTER 2022-05-30 09:29 | Inpatient (IN) | payer MEDICARE, MEDICAID ==
[2022-05-30] MEDS ORDERED: Sodium Chloride 0.9% 1,000 ML IV SCH ×2 (10:45→13:00)
[2022-05-30 11:04] LABS: ESTIMATED GFR 56 mL/min (>60)
[2022-05-30 11:34] LABS: CORONAVIRUS COVID-19 NAA NEGATIVE (NEGATIVE)
[2022-05-30] MEDS ORDERED: cefTRIAXone 1 GM in Sodium Chloride 0.9% 50 ML IV ONE (12:00)
[2022-05-30] MEDS ORDERED: Albuterol 0.083% 2.5 MG/3 ML Neb Soln NEB PRN (13:57)
[2022-05-30] MEDS ORDERED: HYDROmorphone 1 MG/ML Syringe IVPUSH PRN (13:57)
[2022-05-30] MEDS ORDERED: Ondansetron 4 MG Tab.DIS PO PRN (13:57)
[2022-05-30] MEDS ORDERED: Ondansetron 4 MG/2 ML SDV IV PRN (13:57)
[2022-05-30] MEDS ORDERED: Acetaminophen 325 MG Tab PO PRN (13:57)
[2022-05-30] MEDS: cefTRIAXone 1 GM in Sodium Chloride 0.9% 50 ML IV SCH (15:43)
[2022-05-30] MEDS ORDERED: Methadone 10 MG Tab PO ONE (16:00)
[2022-05-30] MEDS: HYDROMORPHONE HCL 8 MG PO PRN ×2 (16:33→20:13)
[2022-05-30] MEDS: Lactobacillus Rhamnosus GG (Probiotic) Cap PO SCH (20:09)
[2022-05-30] MEDS ORDERED: Methadone 10 MG Tab PO SCH (22:00)
[2022-05-30] MEDS: Methadone 10 MG Tab PO SCH (23:10)
[2022-05-31] MEDS: Methadone 10 MG Tab PO SCH ×3 (05:39→22:05)
[2022-05-31] MEDS: HYDROMORPHONE HCL 8 MG PO PRN ×2 (05:39→11:30)
[2022-05-31] MEDS: Lactobacillus Rhamnosus GG (Probiotic) Cap PO SCH ×2 (08:22→21:12)
[2022-05-31] MEDS ORDERED: Non-Formulary Medication 1 Each (Levothyroxine Sodium [Synthroid] 75 MCG Tablet) PO SCH (09:00)
[2022-05-31] MEDS: Sodium Chloride 0.9% 1,000 ML IV SCH (10:56)
[2022-05-31] MEDS ORDERED: Loperamide 2 MG Cap PO ONE (11:00)
[2022-05-31] MEDS ORDERED: cefTRIAXone 1 GM in Sodium Chloride 0.9% 50 ML IV SCH (12:00)
[2022-05-31] MEDS ORDERED: Loperamide 2 MG Cap PO PRN (14:00)
[2022-05-31] MEDS: cefTRIAXone 1 GM in Sodium Chloride 0.9% 50 ML IV SCH (14:36)
[2022-06-01] MEDS: Methadone 10 MG Tab PO SCH ×3 (06:04→22:03)
[2022-06-01] MEDS: Sodium Chloride 0.9% 1,000 ML IV SCH (06:04)
[2022-06-01] MEDS: Lactobacillus Rhamnosus GG (Probiotic) Cap PO SCH ×2 (08:36→22:03)
[2022-06-01] MEDS: cefTRIAXone 1 GM in Sodium Chloride 0.9% 50 ML IV SCH (15:24)
[2022-06-02] MEDS: Methadone 10 MG Tab PO SCH (06:18)
[2022-06-02 08:09] VITALS: BP 113/58; PULSE 69
[2022-06-02] MEDS: Lactobacillus Rhamnosus GG (Probiotic) Cap PO SCH (08:11)
== END 2022-06-02 10:40 | disposition home health service (06) | DRG 683 ==
LOC: JP.ED 09:29 → JP.MS 12:55
PROVIDERS: ADMIT Internal Medicine; ATTEND Internal Medicine
DX: N17.9 Acute kidney failure, unspecified (principal); C19 Malignant neoplasm of rectosigmoid junction; N39.0 Urinary tract infection, site not specified; E87.1 Hypo-osmolality and hyponatremia; E86.0 Dehydration; E87.5 Hyperkalemia; C61 Malignant neoplasm of prostate; H91.90 Unspecified hearing loss, unspecified ear; H54.7 Unspecified visual loss; S31.809D Unspecified open wound of unspecified buttock, subsequent encounter; L98.499 Non-pressure chronic ulcer of skin of other sites with unspecified severity; Z87.442 Personal history of urinary calculi; Z87.820 Personal history of traumatic brain injury; Z90.49 Acquired absence of other specified parts of digestive tract; Z98.890 Other specified postprocedural states; Z86.718 Personal history of other venous thrombosis and embolism; Z86.711 Personal history of pulmonary embolism; Z85.46 Personal history of malignant neoplasm of prostate; Z85.038 Personal history of other malignant neoplasm of large intestine; Z85.51 Personal history of malignant neoplasm of bladder; Z93.3 Colostomy status; E07.89 Other specified disorders of thyroid; Z79.890 Hormone replacement therapy; Z79.899 Other long term (current) drug therapy; Z92.21 Personal history of antineoplastic chemotherapy; Z20.822 Contact with and (suspected) exposure to COVID-19
CPT/HCPCS: 0241U; 36415; 80048; 80053; 81001; 84132; 84145; 85025; 85027; 86140; 87046; 87086; 87088; 87186; 87493; 87899; 89055; 96360; 96361; 97116; 97162; 97530; 97535; 99222; 99232; 99239; 99284; 99285; A9270-GY; J0696; J1642; J7030

== ENCOUNTER 2022-06-28 11:45 | Emergency (ER) | payer MEDICARE, MEDICAID ==
[2022-06-28] MEDS ORDERED: Sodium Chloride 0.9% 10 ML Syringe FLUSH PRN (12:48)
[2022-06-28] MEDS ORDERED: HYDROmorphone 1 MG/ML Syringe IVPUSH PRN (12:51)
[2022-06-28] MEDS ORDERED: Prochlorperazine 10 MG/2 ML SDV IVPUSH PRN (12:52)
[2022-06-28 13:35] LABS: ESTIMATED GFR 84 mL/min (>60)
[2022-06-28] MEDS ORDERED: Ertapenem 1 GM in Sodium Chloride 0.9% 100 ML IV ONE (14:30)
[2022-06-28] MEDS ORDERED: Sodium Chloride 0.9% 100 ML IV ONE (14:36)
[2022-06-28] MEDS ORDERED: Iopamidol 612 MG/ML 100 ML Bottle IV ONE (14:36)
[2022-06-28] MEDS ORDERED: Sodium Chloride 0.9% 10 ML Syringe FLUSH ONE (14:36)
[2022-06-28] MEDS ORDERED: Sodium Chloride 0.9% 1,000 ML IV ONE (15:18)
[2022-06-28 15:36] VITALS: BP 98/62; PULSE 71
[2022-06-28] MEDS ORDERED: Methadone 10 MG Tab PO ONE (16:30)
== END 2022-06-28 17:58 | disposition home or self-care (01) ==
LOC: JP.ED 11:45
DX: G89.3 Neoplasm related pain (acute) (chronic) (principal); E86.0 Dehydration; E87.1 Hypo-osmolality and hyponatremia; D72.829 Elevated white blood cell count, unspecified; Z20.822 Contact with and (suspected) exposure to COVID-19; Z79.899 Other long term (current) drug therapy
CPT/HCPCS: 36415; 74177; 80053; 81001; 83605; 83735; 85025; 86140; 87040; 87086; 96361; 96365; 96375; 99284; A9270; J0780; J1170; J1335; J1642; J3490; J7030; Q9967; U0002; 87088; 87186; 99285

== ENCOUNTER 2022-09-17 13:46 | Inpatient (IN) | payer MEDICARE, MEDICAID ==
[2022-09-17 15:54] LABS: ESTIMATED GFR 94 mL/min (>60)
[2022-09-17] MEDS ORDERED: Ondansetron 4 MG/2 ML SDV IV PRN (20:15)
[2022-09-17] MEDS ORDERED: Melatonin 3 MG Tab PO PRN (20:15)
[2022-09-17] MEDS: Methadone 10 MG Tab PO SCH (22:26)
[2022-09-18] MEDS: Methadone 10 MG Tab PO SCH ×3 (06:45→21:48)
[2022-09-18] MEDS: Levothyroxine 25 MCG Tab PO SCH (08:39)
[2022-09-18] MEDS: Dexamethasone 2 MG Tab PO SCH ×2 (08:40→20:02)
[2022-09-18] MEDS ORDERED: Sulfamethoxazole/Trimethoprim 800-160 MG Tab PO SCH (09:00)
[2022-09-18] MEDS: Nystatin Crm 15 GM Tube TOP SCH ×2 (15:09→20:02)
[2022-09-18] MEDS: Acetaminophen 325 MG Tab PO PRN (19:55)
[2022-09-19] MEDS ORDERED: Sodium Chloride 0.9% 1,000 ML IV ONE (01:12)
[2022-09-19] MEDS ORDERED: Potassium Chloride 20 MEQ Tab.ER PO ONE (05:22)
[2022-09-19] MEDS: Sodium Chloride 0.9% 1,000 ML IV SCH ×3 (05:23→22:44)
[2022-09-19] MEDS ORDERED: Potassium Chloride 10 MEQ in Premix Bag 1 BAG IV ONE ×2 (05:30→06:30)
[2022-09-19] MEDS: Methadone 10 MG Tab PO SCH ×3 (05:30→22:51)
[2022-09-19] MEDS: Dexamethasone 2 MG Tab PO SCH ×3 (08:08→23:04)
[2022-09-19] MEDS: Nystatin Crm 15 GM Tube TOP SCH ×2 (08:35→21:20)
[2022-09-19] MEDS: Levothyroxine 25 MCG Tab PO SCH (08:41)
[2022-09-19] MEDS: Acetaminophen 325 MG Tab PO PRN (23:03)
[2022-09-20] MEDS: Methadone 10 MG Tab PO SCH ×3 (06:22→21:39)
[2022-09-20] MEDS ORDERED: Bupivacaine 0.5% 50 ML MDV ONE (07:24)
[2022-09-20] MEDS ORDERED: fentaNYL 250 MCG/5 ML SDV ONE (07:43)
[2022-09-20] MEDS ORDERED: Ondansetron 4 MG/2 ML SDV ONE (07:44)
[2022-09-20] MEDS ORDERED: Dexamethasone 4 MG/ML SDV ONE (07:44)
[2022-09-20] MEDS ORDERED: Neostigmine Methylsulfate 1 MG/ML 5 ML Syringe ONE (07:44)
[2022-09-20] MEDS ORDERED: Propofol 200 MG/20 ML SDV ONE (07:44)
[2022-09-20] MEDS ORDERED: Rocuronium 50 MG/5 ML Vial ONE (07:44)
[2022-09-20] MEDS ORDERED: Glycopyrrolate 0.2 MG/ML 5 ML MDV ONE (07:44)
[2022-09-20] MEDS ORDERED: Lactated Ringers 1,000 ML ONE (08:00)
[2022-09-20] MEDS ORDERED: Morphine 2 MG/ML SYRINGE IVPUSH ONE (09:03)
[2022-09-20] MEDS ORDERED: Morphine 2 MG/ML SYRINGE IVPUSH PRN (10:00)
[2022-09-20] MEDS: Levothyroxine 25 MCG Tab PO SCH (10:58)
[2022-09-20] MEDS: Nystatin Crm 15 GM Tube TOP SCH ×2 (10:58→21:34)
[2022-09-20] MEDS: Dexamethasone 2 MG Tab PO SCH ×4 (10:59→21:36)
[2022-09-20] MEDS ORDERED: fentaNYL 50 MCG/ML SDV IVPUSH PRN (13:31)
[2022-09-20] MEDS: Sodium Chloride 0.9% 1,000 ML IV SCH (13:48)
[2022-09-20] MEDS: Meropenem 1 GM in Sodium Chloride 0.9% 100 ML IV SCH ×2 (13:56→21:30)
[2022-09-20] MEDS: Lactobacillus Rhamnosus GG (Probiotic) Cap PO SCH (21:34)
[2022-09-21] MEDS: Sodium Chloride 0.9% 1,000 ML IV SCH (05:03)
[2022-09-21] MEDS: Meropenem 1 GM in Sodium Chloride 0.9% 100 ML IV SCH ×3 (05:03→20:40)
[2022-09-21] MEDS: Methadone 10 MG Tab PO SCH ×3 (05:15→23:24)
[2022-09-21] MEDS: Nystatin Crm 15 GM Tube TOP SCH ×2 (09:00→21:57)
[2022-09-21] MEDS: Levothyroxine 25 MCG Tab PO SCH (10:36)
[2022-09-21] MEDS: Dexamethasone 2 MG Tab PO SCH (10:37)
[2022-09-21] MEDS ORDERED: Furosemide 40 MG/4 ML VIAL IVPUSH ONE (13:32)
[2022-09-21] MEDS: Lactobacillus Rhamnosus GG (Probiotic) Cap PO SCH ×2 (14:44→21:57)
[2022-09-21] MEDS: Ondansetron 4 MG Tab.DIS PO PRN (20:31)
[2022-09-22 05:04] LABS: ESTIMATED GFR 98 mL/min (>60)
[2022-09-22] MEDS: Meropenem 1 GM in Sodium Chloride 0.9% 100 ML IV SCH ×3 (05:35→21:46)
[2022-09-22] MEDS: Methadone 10 MG Tab PO SCH ×3 (07:49→22:10)
[2022-09-22] MEDS: Ondansetron 4 MG Tab.DIS PO PRN (09:50)
[2022-09-22] MEDS: Lactobacillus Rhamnosus GG (Probiotic) Cap PO SCH ×2 (09:56→22:06)
[2022-09-22] MEDS: Levothyroxine 25 MCG Tab PO SCH (10:33)
[2022-09-22] MEDS: Nystatin Crm 15 GM Tube TOP SCH ×2 (14:23→22:06)
[2022-09-23] MEDS: Methadone 10 MG Tab PO SCH ×3 (05:39→21:38)
[2022-09-23] MEDS: Meropenem 1 GM in Sodium Chloride 0.9% 100 ML IV SCH ×3 (05:39→21:39)
[2022-09-23] MEDS: Levothyroxine 25 MCG Tab PO SCH (08:16)
[2022-09-23] MEDS: Lactobacillus Rhamnosus GG (Probiotic) Cap PO SCH ×2 (08:16→21:39)
[2022-09-23] MEDS: Nystatin Crm 15 GM Tube TOP SCH ×2 (08:17→21:39)
[2022-09-24] MEDS: Meropenem 1 GM in Sodium Chloride 0.9% 100 ML IV SCH ×3 (05:33→21:11)
[2022-09-24] MEDS: Methadone 10 MG Tab PO SCH ×3 (05:34→21:10)
[2022-09-24] MEDS: Lactobacillus Rhamnosus GG (Probiotic) Cap PO SCH ×2 (08:43→20:06)
[2022-09-24] MEDS: Nystatin Crm 15 GM Tube TOP SCH ×2 (08:43→20:06)
[2022-09-24] MEDS: Levothyroxine 25 MCG Tab PO SCH (08:43)
[2022-09-24] MEDS ORDERED: Potassium Chloride 20 MEQ Tab.ER PO ONE (09:00)
[2022-09-25] MEDS: Meropenem 1 GM in Sodium Chloride 0.9% 100 ML IV SCH ×3 (05:29→21:50)
[2022-09-25] MEDS: Methadone 10 MG Tab PO SCH ×3 (05:36→21:50)
[2022-09-25] MEDS: Lactobacillus Rhamnosus GG (Probiotic) Cap PO SCH ×2 (08:32→21:49)
[2022-09-25] MEDS: Levothyroxine 25 MCG Tab PO SCH (08:33)
[2022-09-25] MEDS: Nystatin Crm 15 GM Tube TOP SCH ×2 (08:34→21:49)
[2022-09-25] MEDS ORDERED: Aluminum Hydroxide/Magnesium Hydroxide/Simethicone Susp 30 ML Cup PRN (11:33)
[2022-09-26] MEDS: Methadone 10 MG Tab PO SCH ×3 (05:19→22:26)
[2022-09-26] MEDS: Meropenem 1 GM in Sodium Chloride 0.9% 100 ML IV SCH ×3 (05:19→20:37)
[2022-09-26] MEDS: Levothyroxine 25 MCG Tab PO SCH (08:42)
[2022-09-26] MEDS: Lactobacillus Rhamnosus GG (Probiotic) Cap PO SCH ×2 (08:42→20:37)
[2022-09-26] MEDS: Nystatin Crm 15 GM Tube TOP SCH ×2 (08:42→20:37)
[2022-09-27] MEDS: Methadone 10 MG Tab PO SCH ×3 (05:19→21:12)
[2022-09-27] MEDS: Meropenem 1 GM in Sodium Chloride 0.9% 100 ML IV SCH ×3 (05:20→21:13)
[2022-09-27] MEDS: Lactobacillus Rhamnosus GG (Probiotic) Cap PO SCH ×2 (08:16→21:12)
[2022-09-27] MEDS: Levothyroxine 25 MCG Tab PO SCH (08:16)
[2022-09-27] MEDS: Nystatin Crm 15 GM Tube TOP SCH (08:17)
[2022-09-27] MEDS ORDERED: Nystatin Topical Powder 15 GM Bottle TOP SCH (21:00)
[2022-09-28] MEDS: Meropenem 1 GM in Sodium Chloride 0.9% 100 ML IV SCH ×3 (04:52→21:44)
[2022-09-28] MEDS: Methadone 10 MG Tab PO SCH ×3 (05:29→21:44)
[2022-09-28] MEDS: Levothyroxine 25 MCG Tab PO SCH (08:15)
[2022-09-28] MEDS: Lactobacillus Rhamnosus GG (Probiotic) Cap PO SCH ×2 (08:16→21:44)
[2022-09-28] MEDS: Nystatin Topical Powder 15 GM Bottle TOP SCH ×2 (10:42→21:44)
[2022-09-29] MEDS: Methadone 10 MG Tab PO SCH ×3 (05:31→21:38)
[2022-09-29] MEDS: Meropenem 1 GM in Sodium Chloride 0.9% 100 ML IV SCH ×3 (05:32→21:37)
[2022-09-29] MEDS: Levothyroxine 25 MCG Tab PO SCH (09:20)
[2022-09-29] MEDS: Lactobacillus Rhamnosus GG (Probiotic) Cap PO SCH ×2 (09:20→21:38)
[2022-09-29] MEDS: Nystatin Topical Powder 15 GM Bottle TOP SCH ×2 (09:20→21:38)
[2022-09-30] MEDS: Methadone 10 MG Tab PO SCH ×3 (05:45→21:07)
[2022-09-30] MEDS: Meropenem 1 GM in Sodium Chloride 0.9% 100 ML IV SCH ×3 (05:45→21:05)
[2022-09-30] MEDS: Nystatin Topical Powder 15 GM Bottle TOP SCH ×2 (08:38→21:04)
[2022-09-30] MEDS: Lactobacillus Rhamnosus GG (Probiotic) Cap PO SCH ×2 (08:38→21:05)
[2022-09-30] MEDS: Levothyroxine 25 MCG Tab PO SCH (08:38)
[2022-10-01] MEDS: Methadone 10 MG Tab PO SCH ×3 (05:15→21:45)
[2022-10-01] MEDS: Meropenem 1 GM in Sodium Chloride 0.9% 100 ML IV SCH ×3 (05:15→21:38)
[2022-10-01] MEDS: Levothyroxine 25 MCG Tab PO SCH (08:41)
[2022-10-01] MEDS: Lactobacillus Rhamnosus GG (Probiotic) Cap PO SCH ×2 (08:41→21:38)
[2022-10-01] MEDS: Nystatin Topical Powder 15 GM Bottle TOP SCH ×2 (08:41→21:40)
[2022-10-02] MEDS: Meropenem 1 GM in Sodium Chloride 0.9% 100 ML IV SCH ×3 (05:50→21:20)
[2022-10-02] MEDS: Methadone 10 MG Tab PO SCH ×3 (05:51→21:19)
[2022-10-02] MEDS: Lactobacillus Rhamnosus GG (Probiotic) Cap PO SCH ×2 (08:19→21:19)
[2022-10-02] MEDS: Nystatin Topical Powder 15 GM Bottle TOP SCH ×2 (08:19→21:20)
[2022-10-02] MEDS: Levothyroxine 25 MCG Tab PO SCH (08:19)
[2022-10-03] MEDS: Methadone 10 MG Tab PO SCH ×3 (05:12→22:35)
[2022-10-03] MEDS: Meropenem 1 GM in Sodium Chloride 0.9% 100 ML IV SCH ×3 (05:13→22:36)
[2022-10-03] MEDS: Levothyroxine 25 MCG Tab PO SCH (08:24)
[2022-10-03] MEDS: Lactobacillus Rhamnosus GG (Probiotic) Cap PO SCH ×2 (08:24→22:35)
[2022-10-03] MEDS: Nystatin Topical Powder 15 GM Bottle TOP SCH ×3 (08:36→22:36)
[2022-10-04] MEDS: Methadone 10 MG Tab PO SCH ×3 (05:56→21:27)
[2022-10-04] MEDS: Meropenem 1 GM in Sodium Chloride 0.9% 100 ML IV SCH ×3 (05:58→20:34)
[2022-10-04] MEDS: Levothyroxine 25 MCG Tab PO SCH (09:21)
[2022-10-04] MEDS: Lactobacillus Rhamnosus GG (Probiotic) Cap PO SCH ×2 (09:21→20:33)
[2022-10-04] MEDS: Nystatin Topical Powder 15 GM Bottle TOP SCH ×2 (09:22→20:33)
[2022-10-05] MEDS: Methadone 10 MG Tab PO SCH ×3 (05:31→21:28)
[2022-10-05] MEDS: Meropenem 1 GM in Sodium Chloride 0.9% 100 ML IV SCH ×3 (05:32→21:27)
[2022-10-05] MEDS: Lactobacillus Rhamnosus GG (Probiotic) Cap PO SCH ×2 (08:18→21:27)
[2022-10-05] MEDS: Levothyroxine 25 MCG Tab PO SCH (08:18)
[2022-10-05] MEDS: Nystatin Topical Powder 15 GM Bottle TOP SCH ×2 (08:33→21:27)
[2022-10-05] MEDS ORDERED: Enoxaparin 40 MG/0.4 ML Syringe SUBCUT SCH (17:15)
[2022-10-06] MEDS: Methadone 10 MG Tab PO SCH ×3 (05:28→21:15)
[2022-10-06] MEDS: Meropenem 1 GM in Sodium Chloride 0.9% 100 ML IV SCH ×3 (05:29→21:16)
[2022-10-06] MEDS: Nystatin Topical Powder 15 GM Bottle TOP SCH ×2 (08:45→21:16)
[2022-10-06] MEDS: Levothyroxine 25 MCG Tab PO SCH (08:45)
[2022-10-06] MEDS: Lactobacillus Rhamnosus GG (Probiotic) Cap PO SCH ×2 (08:45→21:16)
[2022-10-06] MEDS: Enoxaparin 40 MG/0.4 ML Syringe SUBCUT SCH (18:19)
[2022-10-07] MEDS: Methadone 10 MG Tab PO SCH ×3 (05:19→21:35)
[2022-10-07] MEDS: Meropenem 1 GM in Sodium Chloride 0.9% 100 ML IV SCH ×3 (05:19→21:19)
[2022-10-07] MEDS: Nystatin Topical Powder 15 GM Bottle TOP SCH ×2 (10:09→21:22)
[2022-10-07] MEDS: Lactobacillus Rhamnosus GG (Probiotic) Cap PO SCH ×2 (10:09→21:22)
[2022-10-07] MEDS: Levothyroxine 25 MCG Tab PO SCH (10:09)
[2022-10-07] MEDS: Enoxaparin 40 MG/0.4 ML Syringe SUBCUT SCH (17:45)
[2022-10-08] MEDS: Meropenem 1 GM in Sodium Chloride 0.9% 100 ML IV SCH ×3 (05:45→22:19)
[2022-10-08] MEDS: Methadone 10 MG Tab PO SCH ×3 (05:48→22:22)
[2022-10-08] MEDS: Levothyroxine 25 MCG Tab PO SCH (08:26)
[2022-10-08] MEDS: Lactobacillus Rhamnosus GG (Probiotic) Cap PO SCH ×2 (08:26→22:23)
[2022-10-08] MEDS: Nystatin Topical Powder 15 GM Bottle TOP SCH ×2 (08:28→22:22)
[2022-10-08] MEDS: Enoxaparin 40 MG/0.4 ML Syringe SUBCUT SCH (17:58)
[2022-10-09] MEDS: Meropenem 1 GM in Sodium Chloride 0.9% 100 ML IV SCH ×3 (05:31→21:07)
[2022-10-09] MEDS: Methadone 10 MG Tab PO SCH ×3 (05:37→21:07)
[2022-10-09] MEDS: Levothyroxine 25 MCG Tab PO SCH (08:00)
[2022-10-09] MEDS: Nystatin Topical Powder 15 GM Bottle TOP SCH ×2 (08:00→21:07)
[2022-10-09] MEDS: Lactobacillus Rhamnosus GG (Probiotic) Cap PO SCH ×2 (08:00→21:06)
[2022-10-09] MEDS: Enoxaparin 40 MG/0.4 ML Syringe SUBCUT SCH (17:24)
[2022-10-10] MEDS: Meropenem 1 GM in Sodium Chloride 0.9% 100 ML IV SCH ×3 (05:01→22:48)
[2022-10-10] MEDS: Methadone 10 MG Tab PO SCH ×3 (05:55→22:46)
[2022-10-10] MEDS: Lactobacillus Rhamnosus GG (Probiotic) Cap PO SCH ×2 (08:51→22:46)
[2022-10-10] MEDS: Nystatin Topical Powder 15 GM Bottle TOP SCH ×3 (08:51→22:46)
[2022-10-10] MEDS: Levothyroxine 25 MCG Tab PO SCH (08:51)
[2022-10-10] MEDS: Enoxaparin 40 MG/0.4 ML Syringe SUBCUT SCH (17:29)
[2022-10-11] MEDS: Meropenem 1 GM in Sodium Chloride 0.9% 100 ML IV SCH ×3 (05:14→21:23)
[2022-10-11] MEDS: Methadone 10 MG Tab PO SCH ×3 (05:37→21:21)
[2022-10-11] MEDS: Lactobacillus Rhamnosus GG (Probiotic) Cap PO SCH ×2 (09:24→21:22)
[2022-10-11] MEDS: Levothyroxine 25 MCG Tab PO SCH (09:24)
[2022-10-11] MEDS: Nystatin Topical Powder 15 GM Bottle TOP SCH ×2 (09:25→21:22)
[2022-10-11] MEDS: Enoxaparin 40 MG/0.4 ML Syringe SUBCUT SCH (18:10)
[2022-10-12] MEDS: Meropenem 1 GM in Sodium Chloride 0.9% 100 ML IV SCH ×3 (05:05→21:27)
[2022-10-12] MEDS: Methadone 10 MG Tab PO SCH ×3 (05:05→21:27)
[2022-10-12] MEDS: Lactobacillus Rhamnosus GG (Probiotic) Cap PO SCH ×2 (09:00→21:26)
[2022-10-12] MEDS: Levothyroxine 25 MCG Tab PO SCH (09:00)
[2022-10-12] MEDS: Nystatin Topical Powder 15 GM Bottle TOP SCH ×2 (09:01→21:26)
[2022-10-12] MEDS: Enoxaparin 40 MG/0.4 ML Syringe SUBCUT SCH (18:09)
[2022-10-13] MEDS: Meropenem 1 GM in Sodium Chloride 0.9% 100 ML IV SCH ×3 (05:06→21:03)
[2022-10-13] MEDS: Methadone 10 MG Tab PO SCH ×3 (05:06→21:02)
[2022-10-13] MEDS: Levothyroxine 25 MCG Tab PO SCH (08:31)
[2022-10-13] MEDS: Lactobacillus Rhamnosus GG (Probiotic) Cap PO SCH ×2 (08:31→21:02)
[2022-10-13] MEDS: Nystatin Topical Powder 15 GM Bottle TOP SCH ×2 (08:31→21:03)
[2022-10-13] MEDS: Enoxaparin 40 MG/0.4 ML Syringe SUBCUT SCH (18:26)
[2022-10-14] MEDS: Meropenem 1 GM in Sodium Chloride 0.9% 100 ML IV SCH (05:05)
[2022-10-14] MEDS: Methadone 10 MG Tab PO SCH ×2 (05:05→12:59)
[2022-10-14] MEDS: Levothyroxine 25 MCG Tab PO SCH (09:17)
[2022-10-14] MEDS: Lactobacillus Rhamnosus GG (Probiotic) Cap PO SCH (09:17)
[2022-10-14] MEDS: Nystatin Topical Powder 15 GM Bottle TOP SCH (09:17)
[2022-10-14 10:58] VITALS: BP 106/62; PULSE 70
== END 2022-10-14 13:00 | DRG 486 ==
LOC: JP.ED 13:46 → JP.MS 19:29 → UNDOADMOB 19:29 → INTOOBSV 09-19 11:30 → OBSVTOIN 09-19 11:30 → JP.MS 09-23 08:45 → OBSVTOIN 09-23 08:45 → UNDODISIN 10-14 13:00
PROVIDERS: ADMIT Internal Medicine; ATTEND Internal Medicine
PROC: 0SBC4ZZ Excision of Right Knee Joint, Percutaneous Endoscopic Approach (ICD-10-PCS; 2022-09-20)
PROC: XW033N5 Introduction of Meropenem-vaborbactam Anti-infective into Peripheral Vein, Percutaneous Approach, New Technology Group 5 (ICD-10-PCS; principal; 2022-10-14)
DX: R53.1 Weakness (principal); M00.9 Pyogenic arthritis, unspecified; C19 Malignant neoplasm of rectosigmoid junction; C79.51 Secondary malignant neoplasm of bone; E44.0 Moderate protein-calorie malnutrition; N39.0 Urinary tract infection, site not specified; Z20.822 Contact with and (suspected) exposure to COVID-19; G89.3 Neoplasm related pain (acute) (chronic); Z66 Do not resuscitate; Z86.711 Personal history of pulmonary embolism; C67.9 Malignant neoplasm of bladder, unspecified; C61 Malignant neoplasm of prostate; H54.7 Unspecified visual loss; H91.90 Unspecified hearing loss, unspecified ear; L98.8 Other specified disorders of the skin and subcutaneous tissue; Z87.820 Personal history of traumatic brain injury; D75.838 Other thrombocytosis; Z85.46 Personal history of malignant neoplasm of prostate; D64.9 Anemia, unspecified; Z85.038 Personal history of other malignant neoplasm of large intestine; C20 Malignant neoplasm of rectum; C79.9 Secondary malignant neoplasm of unspecified site; E83.52 Hypercalcemia; I95.9 Hypotension, unspecified; E87.6 Hypokalemia; Z87.891 Personal history of nicotine dependence; D75.839 Thrombocytosis, unspecified; S31.809D Unspecified open wound of unspecified buttock, subsequent encounter; S31.809A Unspecified open wound of unspecified buttock, initial encounter; Z68.29 Body mass index [BMI] 29.0-29.9, adult; Z93.3 Colostomy status; E83.51 Hypocalcemia; Z79.890 Hormone replacement therapy; Z79.899 Other long term (current) drug therapy
CPT/HCPCS: 36415; 36430; 73560-26-RT; 73560-RT; 80048; 80053; 80202; 81001; 83605; 84132; 85025; 85027; 86140; 86850; 86900; 86901; 86920; 86922; 87070; 87205; 89050; 96361; 96365; 96366; 96367; 96375; 96376; 97110-GP; 97140-GP; 97163-GP; 97165-GO; 97530-GP; 97535-GP; 99222; 99232; 99239; 99284; A9270-GY; G0378; J1100; J1642; J1650; J1940; J2185; J2270; J2405; J2704; J2710; J3010; J3370; J3480; J3490; J7030; J7050; J7120; J8540; P9016; Q0162; U0002

== ENCOUNTER 2022-12-06 09:14 | Emergency (ER) | payer MEDICARE, MEDICAID ==
[2022-12-06] MEDS ORDERED: Sodium Chloride 0.9% 10 ML Syringe FLUSH PRN (09:55)
[2022-12-06] MEDS ORDERED: Sodium Chloride 0.9% 1,000 ML IV SCH ×2 (10:00→12:30)
[2022-12-06 10:43] LABS: ESTIMATED GFR 67 mL/min (>60)
[2022-12-06] MEDS ORDERED: Methadone 10 MG Tab PO ONE (22:26)
[2022-12-06] MEDS: Zinc Oxide 20% Oint 56.7 GM Tube TOP PRN (22:58)
[2022-12-07] MEDS ORDERED: HYDROMORPHONE HCL 8 MG PO PRN (07:16)
[2022-12-07] MEDS: Levothyroxine 25 MCG Tab PO ONE ×3 (07:42→08:06)
[2022-12-07] MEDS: Sulfamethoxazole/Trimethoprim 800-160 MG Tab PO SCH (07:59)
[2022-12-07] MEDS: Methadone 10 MG Tab PO SCH ×2 (08:00→16:34)
[2022-12-07] MEDS: Levothyroxine 25 MCG Tab PO SCH (08:06)
[2022-12-07] MEDS ORDERED: Non-Formulary Medication 1 Each (Levothyroxine Sodium [Synthroid] 75 MCG Tablet) PO SCH (09:00)
[2022-12-07] MEDS: Zinc Oxide 20% Oint 56.7 GM Tube TOP PRN (23:21)
[2022-12-08] MEDS: Methadone 10 MG Tab PO SCH ×4 (06:35→22:29)
[2022-12-08] MEDS: Zinc Oxide 20% Oint 56.7 GM Tube TOP PRN ×4 (08:30→18:10)
[2022-12-08] MEDS: Sulfamethoxazole/Trimethoprim 800-160 MG Tab PO SCH (08:35)
[2022-12-08] MEDS: Levothyroxine 25 MCG Tab PO SCH (08:35)
[2022-12-08] MEDS ORDERED: Sulfamethoxazole/Trimethoprim 800-160 MG Tab PO ONE (23:00)
[2022-12-09] MEDS: Methadone 10 MG Tab PO SCH ×3 (07:26→23:59)
[2022-12-09] MEDS: Sulfamethoxazole/Trimethoprim 800-160 MG Tab PO SCH (08:29)
[2022-12-09] MEDS: Levothyroxine 25 MCG Tab PO SCH (08:29)
[2022-12-10] MEDS: Methadone 10 MG Tab PO SCH ×3 (07:32→22:39)
[2022-12-10] MEDS: Levothyroxine 25 MCG Tab PO SCH (07:33)
[2022-12-10] MEDS: Sulfamethoxazole/Trimethoprim 800-160 MG Tab PO SCH (08:36)
[2022-12-10] MEDS ORDERED: Enoxaparin 30 MG/0.3 ML Syringe SUBCUT SCH (09:00)
[2022-12-10] MEDS: Zinc Oxide 20% Oint 56.7 GM Tube TOP PRN ×2 (16:39→21:59)
[2022-12-11 07:57] VITALS: BP 114/60; PULSE 69
[2022-12-11] MEDS: Methadone 10 MG Tab PO SCH (08:04)
[2022-12-11] MEDS: Zinc Oxide 20% Oint 56.7 GM Tube TOP PRN (08:04)
[2022-12-11] MEDS: Levothyroxine 25 MCG Tab PO SCH (08:05)
[2022-12-11] MEDS: Sulfamethoxazole/Trimethoprim 800-160 MG Tab PO SCH (08:05)
[2022-12-11] MEDS ORDERED: Enoxaparin 40 MG/0.4 ML Syringe SUBCUT SCH (09:00)
== END 2022-12-11 12:06 | disposition home or self-care (01) ==
LOC: JP.ED 09:14
DX: C61 Malignant neoplasm of prostate (principal); C78.5 Secondary malignant neoplasm of large intestine and rectum; K60.4 Rectal fistula; S31.809D Unspecified open wound of unspecified buttock, subsequent encounter; Z86.711 Personal history of pulmonary embolism; Z79.899 Other long term (current) drug therapy; Z87.891 Personal history of nicotine dependence
CPT/HCPCS: 36415; 80053; 83605; 85025; 96360; 96361; 99284; 99284-25; A9270-GY; J1642; J1650; J3490; J7030

== ENCOUNTER 2023-05-31 03:15 | Inpatient (IN) | payer MEDICARE, MEDICAID ==
[2023-05-31] MEDS ORDERED: Morphine 4 MG/ML Syringe IVPUSH ONE (03:54)
[2023-05-31] MEDS ORDERED: Morphine 10 MG/ML Syringe IVPUSH ONE ×2 (05:32→07:34)
[2023-05-31] MEDS ORDERED: Sennosides/Docusate Sodium 50-8.6 MG Tab PO PRN (09:05)
[2023-05-31] MEDS ORDERED: Ondansetron 4 MG Tab.DIS PO PRN (09:05)
[2023-05-31] MEDS ORDERED: Ondansetron 4 MG/2 ML SDV IV PRN (09:05)
[2023-05-31] MEDS ORDERED: Magnesium Hydroxide 400 MG/5 ML Susp 30 ML Cup PO PRN (09:05)
[2023-05-31] MEDS ORDERED: Acetaminophen 325 MG Tab PO PRN (09:05)
[2023-05-31] MEDS ORDERED: HYDROmorphone 1 MG/ML Syringe IVPUSH ONE (09:20)
[2023-05-31] MEDS: Sodium Chloride 0.9% 1,000 ML IV SCH ×2 (11:11→18:37)
[2023-05-31] MEDS: Morphine 4 MG/ML Syringe IVPUSH PRN ×3 (11:11→18:37)
[2023-05-31 12:52] LABS: HEMATOCRIT 27.7 % (38.4-49.7); HEMOGLOBIN 8.5 g/dL (12.9-16.9); MEAN CORPUSCULAR HEMOGLOBIN 21.5 pg (31.6-35.5); MEAN CORPUSCULAR HGB CONC 30.7 g/dL (31.6-35.5); MEAN CORPUSCULAR VOLUME 70.1 fL (81.4-99.0); RED BLOOD CELL COUNT 3.95 M/uL (4.14-5.76); WHITE BLOOD CELL COUNT,WBC 10.4 K/uL (3.2-11.0)
[2023-05-31 13:07] LABS: CALCIUM 8.4 mg/dL (8.5-10.1); CREATININE 0.7 mg/dL (0.8-1.3); EST CRCL DRUG DOSING (CG) 100.43 mL/min; POTASSIUM,K 3.9 mmol/L (3.6-5.2)
[2023-05-31 13:09] LABS: ANION GAP 6.9 mmol/L (5.0-14.0); INR 1.1; PROTHROMBIN TIME 11.5 sec (9.2-10.6)
[2023-05-31] MEDS ORDERED: Naloxone 0.4 MG/ML SDV IVPUSH PRN (13:51)
[2023-05-31] MEDS ORDERED: Methadone 10 MG Tab PO SCH ×2 (14:00→15:30)
[2023-05-31] MEDS: Enoxaparin 30 MG/0.3 ML Syringe SUBCUT SCH (14:39)
[2023-05-31] MEDS: Methadone 10 MG Tab PO ONE ×2 (17:17→19:39)
[2023-05-31] MEDS: Melatonin 3 MG Tab PO SCH (21:55)
[2023-05-31] MEDS: Methadone 10 MG Tab PO SCH (23:02)
[2023-06-01] MEDS: Sodium Chloride 0.9% 1,000 ML IV SCH ×3 (02:31→19:08)
[2023-06-01] MEDS: Morphine 4 MG/ML Syringe IVPUSH PRN ×5 (04:17→19:05)
[2023-06-01] MEDS: Methadone 10 MG Tab PO SCH ×3 (05:22→21:20)
[2023-06-01 05:28] LABS: CALCIUM 8.3 mg/dL (8.5-10.1); CREATININE 0.7 mg/dL (0.8-1.3); EST CRCL DRUG DOSING (CG) 100.43 mL/min; POTASSIUM,K 4.6 mmol/L (3.6-5.2)
[2023-06-01 05:30] LABS: ANION GAP 9.6 mmol/L (5.0-14.0)
[2023-06-01 05:31] LABS: INR 1.1; PROTHROMBIN TIME 11.5 sec (9.2-10.6)
[2023-06-01] MEDS: Levothyroxine 25 MCG Tab PO SCH (07:55)
[2023-06-01] MEDS ORDERED: Levothyroxine 25 MCG Tab PO SCH (09:00)
[2023-06-01] MEDS: Sulfamethoxazole/Trimethoprim 800-160 MG Tab PO SCH (10:27)
[2023-06-01] MEDS: Enoxaparin 30 MG/0.3 ML Syringe SUBCUT SCH (14:17)
[2023-06-01] MEDS: Melatonin 3 MG Tab PO SCH (21:20)
[2023-06-02] MEDS: Sodium Chloride 0.9% 1,000 ML IV SCH ×2 (02:28→10:07)
[2023-06-02] MEDS: Morphine 4 MG/ML Syringe IVPUSH PRN ×4 (04:43→12:49)
[2023-06-02 05:04] LABS: CALCIUM 7.8 mg/dL (8.5-10.1); CREATININE 0.7 mg/dL (0.8-1.3); EST CRCL DRUG DOSING (CG) 100.43 mL/min; POTASSIUM,K 3.9 mmol/L (3.6-5.2)
[2023-06-02 05:08] LABS: ANION GAP 7.9 mmol/L (5.0-14.0)
[2023-06-02] MEDS: Methadone 10 MG Tab PO SCH ×3 (05:58→21:18)
[2023-06-02] MEDS: Levothyroxine 25 MCG Tab PO SCH (07:41)
[2023-06-02] MEDS: Sulfamethoxazole/Trimethoprim 800-160 MG Tab PO SCH (08:38)
[2023-06-02] MEDS: Enoxaparin 30 MG/0.3 ML Syringe SUBCUT SCH (14:04)
[2023-06-02] MEDS ORDERED: LORazepam ORAL Concentrate 1MG/0.5ML U/D PO PRN (14:26)
[2023-06-02] MEDS: Morphine 10 MG/0.5 ML Oral Syringe BUCCAL PRN ×5 (14:52→23:38)
[2023-06-02] MEDS: Melatonin 3 MG Tab PO SCH (21:15)
[2023-06-03] MEDS: Morphine 10 MG/0.5 ML Oral Syringe BUCCAL PRN ×11 (02:47→21:58)
[2023-06-03] MEDS: Methadone 10 MG Tab PO SCH ×3 (06:48→21:58)
[2023-06-03] MEDS: Levothyroxine 25 MCG Tab PO SCH (07:34)
[2023-06-03] MEDS: Sulfamethoxazole/Trimethoprim 800-160 MG Tab PO SCH (08:30)
[2023-06-03] MEDS: Enoxaparin 30 MG/0.3 ML Syringe SUBCUT SCH (14:03)
[2023-06-03] MEDS: Melatonin 3 MG Tab PO SCH (21:57)
[2023-06-04] MEDS: Methadone 10 MG Tab PO SCH ×2 (06:00→13:14)
[2023-06-04] MEDS: Morphine 10 MG/0.5 ML Oral Syringe BUCCAL PRN ×5 (06:01→13:14)
[2023-06-04] MEDS: Levothyroxine 25 MCG Tab PO SCH (07:04)
[2023-06-04 07:20] VITALS: BP 86/41; PULSE 72
[2023-06-04] MEDS: Sulfamethoxazole/Trimethoprim 800-160 MG Tab PO SCH (08:50)
[2023-06-04] MEDS: Enoxaparin 30 MG/0.3 ML Syringe SUBCUT SCH (13:14)
== END 2023-06-04 13:44 | disposition hospice, inpatient (51) | DRG 948 ==
LOC: JP.ED 03:15 → JP.MS 09:05
PROVIDERS: ADMIT Internal Medicine; ATTEND Hospitalist
DX: G89.3 Neoplasm related pain (acute) (chronic) (principal); C19 Malignant neoplasm of rectosigmoid junction; E44.0 Moderate protein-calorie malnutrition; E87.1 Hypo-osmolality and hyponatremia; R10.2 Pelvic and perineal pain; N32.1 Vesicointestinal fistula; C67.9 Malignant neoplasm of bladder, unspecified; C78.5 Secondary malignant neoplasm of large intestine and rectum; C61 Malignant neoplasm of prostate; Z51.5 Encounter for palliative care; H91.90 Unspecified hearing loss, unspecified ear; E03.9 Hypothyroidism, unspecified; E86.0 Dehydration; Z79.890 Hormone replacement therapy; Z79.899 Other long term (current) drug therapy; Z87.442 Personal history of urinary calculi; Z87.891 Personal history of nicotine dependence; C79.11 Secondary malignant neoplasm of bladder; Z68.26 Body mass index [BMI] 26.0-26.9, adult; S31.809D Unspecified open wound of unspecified buttock, subsequent encounter; E46 Unspecified protein-calorie malnutrition; Z20.822 Contact with and (suspected) exposure to COVID-19
CPT/HCPCS: 96374; 96376; 99285 ×2; J2270 ×3; U0002; 36415; 80048; 85027; 85610; 99223; 99233; 99238; A9270-GY; J1170; J1650; J7030